=== PATIENT | male | born 1940 | race Caucasian/White ===

== ENCOUNTER 2016-10-06 15:42 | Emergency (ER) | payer OTHER ==
[~2016-10-06] VITALS: Ht 175.3 cm; Wt 85.5 kg
[~2016-10-06 15:42] MED LIST: ALBU8.5H2 INHALATION; ASPI-973 PO; ATOR80TA77 PO; DOCU240C41 PO; FLUO20CA25 PO; FURO40TA4 PO; GABA-502 PO; LISI10TA PO; LORA0.5T PO; MIRT30TA6 PO; MULT-321 PO; OMEP20CA11 PO; OXYC-407 PO; PRE20 PO; TAMS0.4C98 PO; THIA100T64 PO; TRAM50TA2 PO
[2016-10-06 16:02] VITALS: BP 141/113; PULSE 82; RESP 20; O2SAT 95
[2016-10-06] MEDS ORDERED: HYDROmorphone 1 mg/mL Inj IVPUSH ONE (16:25)
[2016-10-06 16:26] LABS: BASOPHILS % (AUTO) 0.2 % (0-3); EOSINOPHILS % (AUTO) 4.7 % (0-5); MONOCYTES % (AUTO) 12.4 % (4-12); Mean Corpuscular Hemoglobin 32.7 pg (27.0-35.0); Mean Corpuscular Volume 100.6 fL (81-100); NEUTROPHILS % (AUTO) 56.5 % (40-74); Platelet Count 212 bil/L (150-400)
[2016-10-06 16:43] LABS: INR 0.98 ratio
--- NOTE | 2016-10-06 17:01 | ED.REPORT ---
HPI-General Illness Date of Service Oct 06, 2016 ED Provider: Ronaldo Raza MD A 76 year old male with a medical history including hypertension, CAD, diabetes , COPD, and alcohol abuse presents to the ED accompanied by his daughter with bilateral lower leg sores onset two days ago. Associated symptoms include bilateral lower extremity swelling, pain, and redness. The patient denies fever , chills, or other symptoms. His legs are swollen bilaterally at baseline. Nursing Notes Stated Complaint: OPEN SRES ON LEGS Chief Complaint: General Complaint Nursing Notes Reviewed: Yes Allergies: Coded Allergies: hydrocodone bitartrate (Verified Allergy, Intermediate, Rash,Itching,, 10/06) Scheduled Albuterol HFA (Proair HFA) 8.5 Gm Hfa.aer.ad 2 PUFFS INHALATION Q4H Aspirin (Aspirin) 81 Mg Tablet 81 MG PO DAILY Atorvastatin Calcium (Atorvastatin Calcium) 80 Mg Tablet 80 MG PO HS Cephalexin (Keflex) 500 Mg Capsule 500 MG PO QID Docusate Calcium (Stool Softener) 240 Mg Capsule 240 MG PO DAILY Fluoxetine (Fluoxetine) 20 Mg Capsule 20 MG PO DAILY Furosemide (Furosemide) 40 Mg Tablet 40 MG PO DAILY Gabapentin (Gabapentin) 300 Mg Capsule 300 MG PO TID Lisinopril (Lisinopril) 10 Mg Tablet 10 MG PO DAILY Mirtazapine (Mirtazapine) 30 Mg Tablet 30 MG PO HS Multivit with Calcium,Iron,Min (Maximum Daily Multivitamin) 1 Each Tablet 1 EACH PO DAILY Mupirocin (Mupirocin Ointment) 22 Gm Oint...g. 1 APPLIC TOP TID Omeprazole (Omeprazole) 20 Mg Capsule.dr 20 MG PO BID Prednisone (PredniSONE) 20 Mg Tablet 40 MG PO DAILY Tamsulosin (Flomax) 0.4 Mg Capsule 0.4 MG PO HS Thiamine Mononitrate (Vitamin B-1) 100 Mg Tablet 100 MG PO DAILY Scheduled PRN Lorazepam (Lorazepam) 0.5 Mg Tablet 0.5 MG PO TID PRN PRN For Anxiety Oxycodone HCl/Acetaminophen 5-325 (Endocet 5-325) 1 Each Tablet 1 TABLET PO Q4H PRN PRN For Pain Tramadol (Tramadol) 50 Mg Tablet 50 MG PO BID PRN PRN For Pain General Time Seen by MD: 16:19 Chief Complaint Other (Bilateral Lower Extremity Sores) Hx Obtained From: Patient Arrived By: Walk-in Sudden in Onset?: Yes Onset Occurred: 2 days ago Symptom Duration: Since onset Location: : Leg left: Leg right Quality: Painful Severity: Current: Moderate Severity: Maximum: Moderate Associated with: Reports: Pain (Lower extremities ), Denies: Fever Pertinent Negative: Relieved by nothing Context Related History: Reports Coronary artery disease, Reports Diabetes mellitus Recent Healthcare: No recent doctor visit Past Medical History Past Medical History s, 1. longstanding history of alcoholism, who has had approximately seven admissions since January 2012, for complications of alcoholism, including acute alcohol withdrawal, ground level falls, traumatic injury to his shoulder requiring surgery, broken ribs 2. Polysubstance abuse. 3. Hypertension. 4. Hyperlipidemia 5. Depression and anxiety. 6. COPD not on home oxygen, current every day smoker 7. Coronary artery disease s/p 2 stents 8. History of stroke without residual deficits 9. Obstructive sleep apnea (the patient took himself off CPAP many years ago). 10. Borderline diabetes. 11. History of MRSA pneumonia. 12. Recently patient with ongoing right hip pain, suspect secondary to osteoarthritis, patient scheduled for followup at [facility] for steroid injection, he has been prescribed tramadol and oxycodone by [facility] Reports: COPD, Coronary artery disease, Diabetes mellitus, Hypertension, Stroke Past Surgical History He has had multiple coronary stents, pinning of his right shoulder, and facial cancer removed years ago. Smoking History Former Smoker Social History Alcohol Use: >5 per day Ambulatory Status Walker Review of Systems + Bilateral lower leg sores and redness Full Review of Systems Constitutional: Denies: Chills, Fever Respiratory: Denies: Non-productive cough, Shortness of breath GI: Denies: Diarrhea, Vomiting Musculoskeletal: Reports: Extremity pain (Bilateral lower extremities), Extremity swelling (Bilateral lower extremities) Complete sys rev & neg: except as marked. Physical Exam Vital Signs Vital Signs Date Time Temp Pulse Resp B/P Pulse Ox O2 Delivery O2 Flow Rate FiO2 10/06/16 17:57 60 100/54 95 Room Air 10/06/16 17:53 60 100/54 95 Room Air 10/06/16 16:02 82 20 141/113 95 Room Air Initial VS: Reviewed Neurologic: Alert, Oriented Psychiatric: Mood/affect normal, Behavior normal General/Constitutional: Awake, Alert Head / Eyes: Atraumatic, Normocephalic ENT: Airway patent, Mucous membranes moist Respiratory / Chest: Breath sounds NL, Breath sounds = bilat, No respiratory distress Cardiovascular: Heart rate NL, Regular rhythm, Heart sounds NL, No gallop, No murmurs, No rubs Lower Ext Edema: Positive: Bilateral 2+ (Up to knees) Skin: Warm, Dry Erythema with mild induration to bilateral lower extremities from ankles up 1/3 to knee. Serous drainage and superficial skin breakdown present. Interpretation & Diagnostics Lab Results Interpretation Result Diagram: 10/06/16 1620 10/06/16 1620 Test 10/06/16 16:20 White Blood Count 9.2th/mm3 (3.8-10.1) Red Blood Count 3.36mil/mm3 (4.40-5.80) Hemoglobin 11.0g/dL (13.8-17.2) Hematocrit 33.8% (41.0-50.0) Mean Corpuscular Volume 100.6fL (81-100) Mean Corpuscular Hemoglobin 32.7pg (27.0-35.0) Mean Corpuscular Hemoglobin Concent 32.5% (32.0-37.0) Red Cell Distribution Width 13.3% (12.3-15.4) Platelet Count 212bil/L (150-400) Neutrophils (%) (Auto) 56.5% (40-74) Lymphocytes (%) (Auto) 26.0% (14-46) Monocytes (%) (Auto) 12.4% (4-12) Eosinophils (%) (Auto) 4.7% (0-5) Basophils (%) (Auto) 0.2% (0-3) Prothrombin Time 10.5sec (8.1-12.5) Prothromb Time International Ratio 0.98ratio Sodium Level 133mEq/L (134-144) Potassium Level 4.1mEq/L (3.5-5.2) Chloride Level 91mEq/L (97-108) Carbon Dioxide Level 26mmol/L (18-29) Blood Urea Nitrogen 22mg/dL (8-27) Creatinine 1.21mg/dL (0.76-1.27) Estimat Glomerular Filtration Rate 62mL/min (>59) Glucose Level 106mg/dL (60-99) Lactic Acid Level 1.2mmol/L (0.4-2.0) Calcium Level 9.5mg/dL (8.5-10.1) Magnesium Level 2.0mg/dL (1.6-2.6) Total Bilirubin 0.5mg/dL (0.0-1.2) Aspartate Amino Transf (AST/SGOT) 19U/L (0-50) Alanine Aminotransferase (ALT/SGPT) 16U/L (0-44) Alkaline Phosphatase 154U/L (25-160) Pro-B-Type Natriuretic Peptide 627.4pg/mL (0-486) Total Protein 7.2g/dL (6.4-8.4) Albumin 4.0g/dL (3.4-5.0) Lipase 20U/L (13-60) Re-Eval/Medical Decision Med Decision/Clinical Course A 76 year old male with a medical history including hypertension, CAD, diabetes , COPD, and alcohol abuse presents to the ED accompanied by his daughter with bilateral lower leg sores onset two days ago. Associated symptoms include bilateral lower extremity swelling, pain, and redness. The patient denies fever , chills, or other symptoms. His legs are swollen bilaterally at baseline. Here in the emergency department the patient appears quite uncomfortable but is otherwise afebrile and hemodynamically stable with examination as above. Upper studies notable as below: CBC no leukocytosis Stable hematocrit of 33.8 Sodium 133 Lactate 1.2 Stable BnP of 627 No significant electrolyte abnormalities. Here in the emergency room his pain was treated with IV hydromorphone. Examination notable for symmetric bilateral lower extremity edema and overlying stasis dermatitis with some superficial skin breakdown. I suspect there may be a small component of cellulitis here as well. I prescribed a course of Keflex and advised him to elevate his legs and use compression stockings. No evidence of DVT. Patient nontoxic in appearance. Of note he does have somewhat labile blood pressure initially quite hypertensive and then borderline hypotensive with a systolic blood pressure in the low 100s. I do not believe that this represents an evolving septic picture and in discussion with the patient as family he states that he has a long history of such labile blood pressures. I feel that he is appropriate for discharge and close follow-up with his primary care physician.Prior to discharge follow-up and return precautions were reviewed in detail with the patient who verbalized understanding and agreement with the plan. The patient was discharged in stable condition. Time of Eval: 17:53 Patient Status: Condition improved Re-Evaluation/Progress Note: Discussed with patient and family lab results, diagnosis, and plan for discharge. Follow-up and return to the ER instructions given. Patient agrees with plan for care and all questions were addressed. Counseled Regarding: Diagnosis, Lab results, Need for follow-up, When/why to return to ED Discharge & Departure Primary Impression: Stasis dermatitis of both legs Additional Impressions: Cellulitis Site of cellulitis: extremity Site of cellulitis of extremity: lower extremity Laterality: unspecified laterality Qualified Code: L03.119 - Cellulitis of unspecified part of limb Pain in both lower legs Bilateral lower extremity edema Disposition: Home Discharge Condition All VS Reviewed: Yes Condition: Improved Patient Instructions: Cellulitis (ED), Stasis Dermatitis (ED) Additional Instructions: Thank you for seeking care at the emergency room. It is difficult for us to make definitive diagnoses in the ED but we believe that you are experiencing stasis dermatitis and cellulitis. Our primary goal today in the ED was to evaluate you for any life-threatening conditions. Your evaluation was reassuring. You will be discharged with a prescription for Cephalexin. Elevate your legs as much as possible. Also use compression stockings. You may apply Mupirocin cream as directed for pain. You should follow-up with your primary doctor in the next week. You should return to the ED immediately if you develop fevers, vomiting, cough, shortness of breath, chest pain, lightheadedness, weakness or any other concerning signs or symptoms. Thank you for letting us partake in your care today. Referrals: Niranjan Nettles MD (PCP) Yoly Attestation Portions of this note were transcribed by Deepti Guerrero. I, Dr. Raza, personally performed the history, physical exam, and medical decision-making; I reviewed and confirmed the accuracy of the information in the transcribed note. Signed by: Yoly Wilkinson, 10/06/2016, 20:55 copies to: Niranjan Nettles MD, Beck O MD Oct 06, 2016 17:01 DEEPTI GUERRERO Oct 06, 2016 17:37
[2016-10-06] MEDS ORDERED: CEPH-512 PO (17:39)
[2016-10-06] MEDS ORDERED: MUPI22OI2 TOP (17:39)
[2016-10-06 17:53] VITALS: BP 100/54; PULSE 60; O2SAT 95
[2016-10-06 17:57] VITALS: BP 100/54; PULSE 60; O2SAT 95
== END 2016-10-06 17:58 | disposition home or self-care (01) ==
LOC: SED 15:42
DX: I87.2 Venous insufficiency (chronic) (peripheral) (principal); L03.115 Cellulitis of right lower limb; L03.116 Cellulitis of left lower limb; M79.661 Pain in right lower leg; M79.662 Pain in left lower leg; R60.0 Localized edema; I11.9 Hypertensive heart disease without heart failure; I25.10 Atherosclerotic heart disease of native coronary artery without angina pectoris; E11.9 Type 2 diabetes mellitus without complications; E78.5 Hyperlipidemia, unspecified; J44.9 Chronic obstructive pulmonary disease, unspecified; Z79.82 Long term (current) use of aspirin; Z86.73 Personal history of transient ischemic attack (TIA), and cerebral infarction without residual deficits; Z95.5 Presence of coronary angioplasty implant and graft; Z87.891 Personal history of nicotine dependence; Z88.5 Allergy status to narcotic agent
CPT/HCPCS: 36415; 80053; 83605; 83690; 83735; 83880; 85025; 85610; 96374; 99284; J1170

== ENCOUNTER 2016-11-21 20:06 | Inpatient (IN) | payer MEDICARE, OTHER ==
[~2016-11-21] VITALS: Ht 175.3 cm; Wt 84.0 kg
--- NOTE | 2016-11-21 03:10 | NUR ---
Admission Pt arrived via own bed from ED. Pt soiled in own urine and feces, total bed change done. Pt alert but not able to answer questions regarding medical history or living situation. Pt washed, blue brief on as pt has been incontinent of both bowel and bladder. Pt reported having nausea, given PRN, water, and basin. No emesis. PRN analgesic for pain given. Pt slept 04-06am.
[~2016-11-21 20:06] MED LIST changes: +CEPH-512 PO; +MUPI22OI2 TOP
[2016-11-21 20:14] VITALS: BP 155/57; PULSE 75; O2SAT 95
[2016-11-21 20:41] LABS: BASOPHILS % (AUTO) 0.2 % (0-3); EOSINOPHILS % (AUTO) 0.1 % (0-5); MONOCYTES % (AUTO) 4.7 % (4-12); Mean Corpuscular Hemoglobin 33.9 pg (27.0-35.0); Mean Corpuscular Volume 99.5 fL (81-100); NEUTROPHILS % (AUTO) 79.6 % (40-74); Platelet Count 272 bil/L (150-400)
[2016-11-21 20:59] LABS: TROPONIN T < 0.010 ug/L (0.0-0.011)
--- NOTE | 2016-11-21 21:00 | DRSVH ---
PROCEDURE: X-RAY CHEST ONE VIEW, PORTABLE ([id number]) INDICATIONS: cough TECHNIQUE: One view of the chest was acquired. COMPARISON: [facility], CR, XR CHEST 1VW (PORTABLE), 07/01/2015, 16:58. FINDINGS: Surgical changes and devices: Orthopedic screws proximal right humerus stable compared to prior exam ination. Lungs and pleura: No pleural effusions or pneumothorax. Lungs are clear. Mediastinum: Mediastinal contours appear normal. Heart size is normal. Bones and chest wall: Chronic third, fourth, fifth and sixth rib fractures stable compared to prior examination. No suspicious bony lesions. Overlying soft tissues appear unremarkable. IMPRESSION: No acute cardiopulmonary disease process. Dictated by: Nakita Salas MD, PhD on 11/21/2016 at 20:57 Approved by: Nakita Salas MD, PhD on 11/21/2016 at 20:58
[2016-11-21 21:07] LABS: Lipase 20 U/L (13-60)
--- NOTE | 2016-11-21 21:13 | ED.REPORT ---
HPI-Abd Pain M 40 and Over Date of Service November 21, 2016 ED Provider: Pillo Christianson MD 76 y/o male with a hx of alcohol abuse, hypertension, CAD, diabetes, and COPD presents to the ED via EMS complaining of nausea. He says he has been sick for "a long time". He can not give a clear answer as to the onset or duration of his symptoms. Associated sx include abdominal pain, vomiting, diarrhea, chills, SOB and yellow sputum with cough. He denies fever. As per the pt's family, the pt "drinks beer all day long but it doesn't affect him." They were also unable to give a clear answer as to the onset of the pt's sx. Nursing Notes Stated Complaint: NAUSEA Chief Complaint: General Complaint Nursing Notes Reviewed: Yes Allergies: Coded Allergies: hydrocodone bitartrate (Verified Allergy, Intermediate, Rash,Itching,, 10/06) Scheduled Albuterol HFA (Proair HFA) 8.5 Gm Hfa.aer.ad 2 PUFFS INHALATION Q4H Atorvastatin Calcium (Atorvastatin Calcium) 80 Mg Tablet 80 MG PO HS Ferrous Sulfate (Ferrous Sulfate) 324 Mg Tablet.dr 324 MG PO TIDWM Finasteride (Finasteride) 5 Mg Tablet 5 MG PO DAILY Fluoxetine (Fluoxetine) 40 Mg Capsule 40 MG PO DAILY Furosemide (Furosemide) 20 Mg Tab 60 MG PO DAILY Gabapentin (Gabapentin) 300 Mg Capsule 600 MG PO TID Lisinopril (Lisinopril) 10 Mg Tablet 10 MG PO DAILY Mirtazapine (Mirtazapine) 30 Mg Tablet 30 MG PO HS Morphine Sulfate (Morphine Sulfate) 30 Mg Tablet 30 MG PO TID Omeprazole (Omeprazole) 20 Mg Capsule.dr 20 MG PO BIDWM Polyethylene Glycol 3350 (Polyethylene Glycol 3350) 17 Gm Powd.pack 17 GM PO DAILY Tamsulosin (Flomax) 0.4 Mg Capsule 0.4 MG PO HS Scheduled PRN Docusate Sodium (Docusate Sodium) 250 Mg Capsule 250 MG PO BID PRN PRN For Constipation Ondansetron (Ondansetron) 8 Mg Tablet 8 MG PO Q8HR PRN PRN For Nausea Oxycodone (Roxicodone) 5 Mg Tablet 10 MG PO Q6H PRN PRN For Pain Psyllium Husk (Psyllium Husk) 1,000 Gm Powder 1,000 GM PO DAILY PRN PRN For Constipation General Time Seen by MD: 21:08 Chief Complaint Nausea Hx Obtained From: Patient Arrived By: Ambulance Sudden in Onset?: No Onset Occurred: Onset unknown Symptom Duration: Duration unknown Location: : Diffuse Quality: Painful Radiation: : Does not radiate Severity: Current: Moderate Severity: Maximum: Moderate Recent Healthcare: Recent doctor visit Similar Sx Previous: No Past Medical History Past Medical History 1. longstanding history of alcoholism, who has had approximately seven admissions since January 2012, for complications of alcoholism, including acute alcohol withdrawal, ground level falls, traumatic injury to his shoulder requiring surgery, broken ribs 2. Polysubstance abuse. 3. Hypertension. 4. Hyperlipidemia 5. Depression and anxiety. 6. COPD not on home oxygen, current every day smoker 7. Coronary artery disease s/p 2 stents 8. History of stroke without residual deficits 9. Obstructive sleep apnea (the patient took himself off CPAP many years ago). 10. Borderline diabetes. 11. History of MRSA pneumonia. 12. Recently patient with ongoing right hip pain, suspect secondary to osteoarthritis, patient scheduled for followup at [facility] for steroid injection, he has been prescribed tramadol and oxycodone by [facility] Reports: COPD, Coronary artery disease, Diabetes mellitus, Hypertension, Stroke Past Surgical History He has had multiple coronary stents, pinning of his right shoulder, and facial cancer removed years ago. Smoking History Former Smoker Social History Alcohol Use: >5 per day Other Social History: Good social support Ambulatory Status Walker Review of Systems Constitutional: Reports: Chills, Denies: Fever Respiratory: Reports: Prod cough, yellow, Shortness of breath GI: Reports: Abdominal pain, Diarrhea, Nausea, Vomiting Complete sys rev & neg: except as marked. Physical Exam Initial Vital Signs Vital Signs (First) Date Time Temp Pulse Resp B/P Pulse Ox O2 Delivery O2 Flow Rate FiO2 11/21/16 20:14 36.5 75 155/57 95 Room Air Initial VS: Reviewed, Vital signs normal Head / Eyes: Atraumatic, Normocephalic Neck: Supple, Full range of motion Extremities: Vascular intact, Neuro intact, No swelling, No tenderness Skin: Warm, Dry, No cyanosis Neurologic: Alert, Oriented, Nonfocal General/Constitutional: Awake, Alert, Cooperative Distress / Hydration: Positive: Distress moderate Pt smells of EtOH. His alcohol level is 147. Respiratory / Chest: Atraumatic, No wheezing Rhonchi and rales throughout all lung chanel, no focal changes. Thick yellow/green sputum with cough. Cardiovascular: Heart rate NL, Regular rhythm, Heart sounds NL, No gallop, No murmurs, No rubs Abdomen: Atraumatic Abdomen diffusely tender, especially in the RUQ. Back: Atraumatic, Full range of motion, Non-tender Interpretation & Diagnostics Lab Results Interpretation Result Diagram: 11/23/16 0718 11/23/16 0718 Test 11/21/16 20:00 Magnesium Level 2.0mg/dL (1.6-2.6) Troponin T < 0.010ug/L (0.0-0.011) Pro-B-Type Natriuretic Peptide 1326pg/mL (0-486) Lipase 20U/L (13-60) Alcohols 147mg/dL (0-10) Lab Results Interpretation: Alcohol and forty-seven, normal CBC, mildly low potassium at 3.4, mildly elevated BNP ECG Interpretation ECG Interpretation: Normal sinus rhtyhm. Rate 75. Significant baseline interference. Time: 21:03 Interpreted by: ED physician X-Ray Chest Interpretation Chest Xray Interpretation: IMPRESSION: No acute cardiopulmonary disease process. Dictated by: Nakita Salas MD, PhD on 11/21/2016 at 20:57 Approved by: Nakita Salas MD, PhD on 11/21/2016 at 20:58 View: Portable, 1 view Interpretation / Wet Read by: Interpret - Radiologist CT Abd / Pelvis Interpretation Impression: No signs of appendicitis, diverticulitis, or mechanical small bowel obstruction. Signed by: Sudha Kennedy M.D. 11/21/16 2221. Study type: Abdominal CT IV contrast Interpretation / Wet Read by: Interpret - Radiologist Re-Eval/Medical Decision Med Decision/Clinical Course 76-year-old male who presents with vague abdominal pain and restless distress. Initial labs are mostly unremarkable with a normal white count, but a mild decreased potassium at 3.4, mildly elevated BNP, alcohol 147, and lactic acid 4.0. His chest x-ray appeared normal but there was some ground glass opacities possibly consistent with early pneumonia in the right base on the CT scan. The abdominal portion of the CT scan was normal. He was started on pneumonia antibiotics after cultures. He will be admitted to the hospitalist service for further evaluation and treatment. Source of Hx: Old records Time of Eval: 00:00 Re-Evaluation/Progress Note: Rechecked pt. Discussed lab, imaging results and diagnosis. Informed the pt of the plan to discharge. Pt understands and agrees with plan. F/U instructions and RTER warning given. All questions addressed. Consultation : Referral / Consult Name: Skylar Soriano Pablo DENSON Consulted With: Hospitalist Call Returned at: 00:10 Cherry Dipper: Will see patient, Agrees with eval, Agrees with plan, Accepts admit Counseled Regarding: Diagnosis, Lab results, Need for admission Discharge & Departure Primary Impression: Right lower lobe pneumonia Additional Impression: Sepsis Disposition: ADMITTED TO HOSPITAL Vital Signs - All Vital Signs Date Time Temp Pulse Resp B/P Pulse Ox O2 Delivery O2 Flow Rate FiO2 11/21/16 21:17 36.5 77 150/52 95 Room Air 11/21/16 20:14 36.5 75 155/57 95 Room Air )( All Prior VS Reviewed: Yes Referrals: Niranjan Nettles MD (PCP) Scribe Attestation Portions of this note were transcribed by Esther Whitfield. I, , personally performed the history, physical exam and medical decision-making;I reviewed and confirmed the accuracy of the information in the transcribed note. Signed by Yoly Gentile. 11/21/16 0020 copies to: Niranjan Nettles MD, Howard L MD November 21, 2016 21:12 Esther Whitfield November 21, 2016 21:20 Total Protein 8.0g/dL (6.4-8.4) Albumin 4.2g/dL (3.4-5.0) Lipase 20U/L (13-60) Alcohols 147mg/dL (0-10) ECG Interpretation ECG Interpretation: Normal sinus rhtyhm. Rate 75. Significant baseline interference. Time: 21:03 Interpreted by: ED physician X-Ray Chest Interpretation Chest Xray Interpretation: IMPRESSION: No acute cardiopulmonary disease process. Dictated by: Nakita Salas MD, PhD on 11/21/2016 at 20:57 Approved by: Nakita Salas MD, PhD on 11/21/2016 at 20:58 View: Portable, 1 view Interpretation / Wet Read by: Interpret - Radiologist CT Abd / Pelvis Interpretation Impression: No signs of appendicitis, diverticulitis, or mechanical small bowel obstruction. Signed by: Sudha Kennedy M.D. 11/21/16 2221. Study type: Abdominal CT IV contrast Interpretation / Wet Read by: Interpret - Radiologist Re-Eval/Medical Decision Source of Hx: Old records Time of Eval: 00:00 Re-Evaluation/Progress Note: Rechecked pt. Discussed lab, imaging results and diagnosis. Informed the pt of the plan to discharge. Pt understands and agrees with plan. F/U instructions and RTER warning given. All questions addressed. Consultation : Referral / Consult Name: ChristieSkylarsherron Shah DO Consulted With: Hospitalist Call Returned at: 00:10 Cherry Dipper: Will see patient, Agrees with eval, Agrees with plan, Accepts admit Counseled Regarding: Diagnosis, Lab results, Need for admission Discharge & Departure Primary Impression: Right lower lobe pneumonia Additional Impression: Sepsis Disposition: ADMITTED TO HOSPITAL Vital Signs - All Vital Signs Date Time Temp Pulse Resp B/P Pulse Ox O2 Delivery O2 Flow Rate FiO2 11/21/16 21: 36.5 77 150/52 95 Room Air 11/21/16 20:14 36.5 75 155/57 95 Room Air )( All Prior VS Reviewed: Yes Referrals: Niranjan Nettles MD (PCP) Scribe Attestation Portions of this note were transcribed by Esther Whitfield. I, , personally performed the history, physical exam and medical decision-making;I reviewed and confirmed the accuracy of the information in the transcribed note. Signed by Yoly eGntile. 11/21/16 0020 copies to: Niranjan Nettles MD, Howard L MD November 21, 2016 21:12 Esther Whitfield November 21, 2016 21:20 Disposition: ADMITTED TO HOSPITAL Vital Signs - All Vital Signs Date Time Temp Pulse Resp B/P Pulse Ox O2 Delivery O2 Flow Rate FiO2 11/21/16: 36.5 77 150/52 95 Room Air 11/21/16 20:14 36.5 75 155/57 95 Room Air )( All Prior VS Reviewed: Yes Referrals: Niranjan Nettles MD (PCP) Scribe Attestation Portions of this note were transcribed by Esther Whitfield. I, , personally performed the history, physical exam and medical decision-making;I reviewed and confirmed the accuracy of the information in the transcribed note. Signed by Yoly Gentile. 11/21/16 0020 copies to: Niranjan Nettles MD, Howard L MD November 21, 2016 21:12 Esther Whitfield November 21, 2016 21:20
[2016-11-21 21:17] VITALS: BP 150/52; PULSE 77; O2SAT 95
[2016-11-21] MEDS ORDERED: HYDROmorphone 1 mg/mL Inj IVPUSH ONE (21:45)
[2016-11-21] MEDS ORDERED: cefTRIAXone Inj 2,000 MG in Dextrose 5% Minibag Plus 50 ML IV ONE (22:30)
[2016-11-21] MEDS ORDERED: Azithromycin Inj 500 MG in Dextrose 5% w/Vial Mate 250 ML IV ONE (22:30)
[2016-11-21] MEDS ORDERED: 0.9% Sodium Chloride 1,000 ML IV SCH (22:45)
[2016-11-22] VITALS (10 sets, daily range): BP systolic 158–186; BP diastolic 69–93; PULSE 69–96; RESP 18–24; O2SAT 93–98
[2016-11-22] MEDS ORDERED: Ondansetron 2 mg/mL 2 mL Inj IVPUSH PRN ×2 (02:30→02:50)
[2016-11-22] MEDS ORDERED: Alum-Mag Hydrox-Simeth 30 mL Suspension PO PRN ×2 (02:30→02:50)
[2016-11-22] MEDS ORDERED: Polyethylene Glycol (PEG) 17 Gm Powder PO PRN (02:50)
[2016-11-22] MEDS: 0.9% Sodium Chloride 1,000 ML IV SCH ×2 (03:49→16:18)
[2016-11-22] MEDS ORDERED: HYDROmorphone 0.5 mg/0.5 mL iSecure Syringe IVPUSH PRN (03:55)
--- NOTE | 2016-11-22 04:23 | PCM.HPMED ---
Subjective Date of Service November 22, 2016 Primary Provider: Admitting Physician: Skylar Soriano DO Primary Care Physician: Niranjan Nettles MD Attending Physician: Skylar Soriano DO Admit Status: From the Emergency Department, [facility] Telemetry Chief Complaint: Nausea History of Present Illness: Patient is a 76 y/o male with a hx of alcohol abuse, hypertension, CAD, diabetes , and COPD presents to the ED via EMS complaining of nausea and diarrhea. Patient is a poor historian and does not know why he was brought to the ED from his [facility] care facility. He says he has been sick for "a long time". He can not give a clear answer as to the onset or duration of his symptoms. Associated sx include abdominal pain, vomiting, diarrhea, chills, SOB. The abdominal pain is located on his left lower quadrant, patient characterizes it as deep within intensity being moderate to severe. Patient also reports of feeling constipated and wanting to have have BM, but continues to have ongoing diarrhea, which patient cannot specify duration of. He denies fever or cough. Patient's states he had similar symptoms when he drank whiskey, but cannot remember how long ago this was. Ptates he drank a fifth of whiskey last Tuesday and attributes his symptoms to this. Patient states he continues to drink 8-9 beers a day, and is not ready to quit. In the ED vitals with temperature 36.5, pulse 75, blood pressure 155/57, oxygen at 95% on room air. Labs significant for potassium 3.4, lactic acid 4.0, alkaline phosphatase 184, BNP 1326. EtOH of 147. Troponin 1 negative, lipase normal at 20. CXR showed no acute cardiopulmonary process. CT abdomen showed "No signs of appendicitis, diverticulitis, or mechanical small bowel obstruction." Patient admitted for further workup and management. Patient was diagnosed with community -acquired pneumonia based on physical exam findings, started on ceftriaxone and azithromycin in ED. Review of Systems: Constitutional: Chills, Denies: Fever Respiratory: Yellow productive cough, Shortness of breath GI: LLQ abdominal pain, ongoing diarrhea, Nausea, Denies vomiting Complete sys rev & neg: except as marked. Allergies Coded Allergies: hydrocodone bitartrate (Verified Allergy, Intermediate, Rash,Itching,, 10/06) Home Medications Albuterol HFA (Proair HFA) 8.5 Gm Hfa.aer.ad 2 PUFFS INHALATION Q4H Aspirin (Aspirin) 81 Mg Tablet 81 MG PO DAILY Atorvastatin Calcium (Atorvastatin Calcium) 80 Mg Tablet 80 MG PO HS Cephalexin (Keflex) 500 Mg Capsule 500 MG PO QID Docusate Calcium (Stool Softener) 240 Mg Capsule 240 MG PO DAILY Fluoxetine (Fluoxetine) 20 Mg Capsule 20 MG PO DAILY Furosemide (Furosemide) 40 Mg Tablet 40 MG PO DAILY Gabapentin (Gabapentin) 300 Mg Capsule 300 MG PO TID Lisinopril (Lisinopril) 10 Mg Tablet 10 MG PO DAILY Mirtazapine (Mirtazapine) 30 Mg Tablet 30 MG PO HS Multivit with Calcium,Iron,Min (Maximum Daily Multivitamin) 1 Each Tablet 1 EACH PO DAILY Mupirocin (Mupirocin Ointment) 22 Gm Oint...g. 1 APPLIC TOP TID Omeprazole (Omeprazole) 20 Mg Capsule.dr 20 MG PO BID Prednisone (PredniSONE) 20 Mg Tablet 40 MG PO DAILY Tamsulosin (Flomax) 0.4 Mg Capsule 0.4 MG PO HS Thiamine Mononitrate (Vitamin B-1) 100 Mg Tablet 100 MG PO DAILY Scheduled PRN Lorazepam (Lorazepam) 0.5 Mg Tablet 0.5 MG PO TID PRN PRN For Anxiety Oxycodone HCl/Acetaminophen 5-325 (Endocet 5-325) 1 Each Tablet 1 TABLET PO Q4H PRN PRN For Pain Tramadol (Tramadol) 50 Mg Tablet 50 MG PO BID PRN PRN For Pain PMH 1. longstanding history of alcoholism, who has had approximately seven admissions since January 2012, for complications of alcoholism, including acute alcohol withdrawal, ground level falls, traumatic injury to his shoulder requiring surgery, broken ribs 2. Polysubstance abuse. 3. Hypertension. 4. Hyperlipidemia 5. Depression and anxiety. 6. COPD not on home oxygen, current every day smoker 7. Coronary artery disease s/p 2 stents 8. History of stroke without residual deficits 9. Obstructive sleep apnea (the patient took himself off CPAP many years ago). 10. Borderline diabetes. 11. History of MRSA pneumonia. 12. Recently patient with ongoing right hip pain, suspect secondary to osteoarthritis, patient scheduled for followup at [place] for steroid injection, he has been prescribed [facility]ad[facility] by [facility] Surgical History He has had multiple coronary stents, pinning of his right shoulder, and facial cancer removed years ago. Family History Father due to heart conditions. Social History Hx Alcohol Use: Yes (drinks 8-9 beers a day) Hx Substance Use: Yes (marijuana daily) Hx Tobacco Use: Yes Smoking Status: Former Smoker Living Arrangement: Other (long-term care facility) Exam Vital Signs Vital Sign - Last Date Time Temp Pulse Resp B/P Pulse Ox O2 Delivery O2 Flow Rate FiO2 11/21/16 21:17 36.5 77 150/52 95 Room Air Intake and Output 11/21/16 11/21/16 11/22/16 Cumulative From/Thru 15:00 23:00 07:00 11/21/16 20:14 - 11/21/16 22:53 Intake Total 1000 ml 1000 ml Balance 1000 ml 1000 ml Intake IV Total 1000 ml 1000 ml Exam GEN: alert, awake, in mild distress, appears uncomfortable, smells of alcohol HEENT: NC/AT, pinpoint pupils, EOMI, sclera anicteric, moist mucous membranes Neck: Supple, Non-tender, Full range of motion CV: Regular rate and rhythm, radial and dorsal pulses intact and normal Resp: diffuse coarse breath sounds throughout, no respiratory distress Abd: obese, soft, tender to deep palpation at RLQ Ext: 2+ pitting edema to below knees bilaterally Skin: warm, dry and intact, no cyanosis, mild venous stasis Neuro: alert and oriented, slow speech Psych: normal mood and affect Lab and Diagnostics Result Diagram: 11/21/16199911/21/161999 X-Rays, CTs and MRIs Chest Xray Interpretation: IMPRESSION: No acute cardiopulmonary disease process. Dictated by: Nakita Salas MD, PhD on 11/21/2016 at 20:57 Approved by: Nakita Salas MD, PhD on 11/21/2016 at 20:58 View: Portable, 1 view Interpretation / Wet Read by: Interpret - Radiologist CT abd Impression: No signs of appendicitis, diverticulitis, or mechanical small bowel obstruction. Signed by: Sudha Kennedy M.D. 11/21/16 2221. Study type: Abdominal CT IV contrast Interpretation / Wet Read by: Interpret - Radiologist 12-lead ECG ECG Interpretation: Normal sinus rhtyhm. Rate 75. Significant baseline interference. Time: 21:03 Interpreted by: ED physician Assessment & Plan 76 y/o male with a hx of alcohol abuse, hypertension, CAD, diabetes, and COPD presents to the ED via EMS complaining of nausea. Poor historian. He says he has been sick for "a long time". He can not give a clear answer as to the onset or duration of his symptoms. Associated sx include abdominal pain, vomiting, diarrhea, chills, SOB. Lactic acidosis, present on admission. Acute. - Ddx consist of ethanol intoxication, intestinal ischemia,other sources of infection - aggressive IVF - trend lactic acid Anion gap acidosis, present on admission. Acute. - Anion gap of 21.5 corrected for albumin, most likely due to lactic acidosis above secondary to ethanol intoxication RLQ abdominal pain, present on admission. Acute. - CT abdomen showed "No signs of appendicitis, diverticulitis, or mechanical small bowel obstruction." read by [facility] radiology. - Ddx consist of gastroenteritis, colitis, kidney stone, intestinal ischemia, IBD, IBS, abdominal abscess. - CT to be reviewed by radiologist - immediate general surgery to be consulted if any suspicion of ischemic bowel or appendicitis seen Possible left lower lobe pneumonia, present on admission. - XR showed no acute cardiopulmonary process. Abx with ceftriaxone and azithromycin started in ED based on clinical symptoms and physical exam - will await morning labs to decide to continue or not Elevated alcohol levels, present on admission. - Long-standing history of alcoholism, with multiple admissions since January 2012 - placed on CIWA protocol - patient states he does not want to quit his beer Ongoing diarrhea, present on admission. - patient with recent abx use - Stool PCR, WBC pending - Vancomycin PO [id number] until resulted - contact precautions Chronic conditions: COPD not on home oxygen - Continue home medication albuterol HFA CAD status post 2 stents - on telemetry Hypertension - continue home dose lisinopril and furosemide Hyperlipidemia - continue home dose atorvastatin TALIB noncompliant with CPAP Depression and anxiety - continue home dose fluoxetine and mirtazapine, lorazepam when necessary GERD - continue home dose omeprazole BPH - continue home dose tamsulosin Hx of stroke - continue home dose aspirin Chronic right hip pain secondary to OA - oxycodone/acetaminophen and tramadol held, currently on Dilaudid Medications - Dayteam to clarify medications with pharmacy, since patient does not know what he is taking and why. Acetaminophen-fever/headache/mild/moderate pain Antiemetics, as needed Bowel regimen, as needed. Patient status: Patient was admitted under inpatient status with expected length of stay greater than two midnights due to severity of presenting symptoms , risk of adverse event, and complexity of treatment plan. Pain Evaluation: Adequate Pain Control GI Prophylaxis: Not indicated VTE Prophylaxis: Sub-Q Heparin (Unfractionated) Resuscitation Status: CPR: Attempt Resuscitation (Shock once) Attending Statement The patient was seen and examined together with house staff on 12/23/2016 and I agree with the history, exam and plan as outlined in the note above. Mable Arango DO November 22, 2016 02:27 Skylar Soriano DO November 22, 2016 05:34 doctor's office to get a complete up-to-date medication list. For today, I have continued with his Flomax, mirtazapine, omeprazole, lisinopril, aspirin. We also continue with his gabapentin. 9. CODE STATUS: FULL CODE. Code sheet filled out. Pain Evaluation: Adequate Pain Control GI Prophylaxis: Not indicated VTE Prophylaxis: Sub-Q Heparin (Unfractionated) Resuscitation Status: CPR: Attempt Resuscitation (Shock once) Mable Arango DO November 22, 2016 02:27
[2016-11-22] MEDS: HYDROmorphone 1 mg/mL Inj IVPUSH PRN ×3 (05:27→10:38)
[2016-11-22 06:04] LABS: Mean Corpuscular Hemoglobin 34.4 pg (27.0-35.0); Mean Corpuscular Volume 100.9 fL (81-100); Platelet Count 234 bil/L (150-400)
[2016-11-22 06:05] LABS: BASOPHILS % (AUTO) 0.2 % (0-3); EOSINOPHILS % (AUTO) 0 % (0-5); MONOCYTES % (AUTO) 5.7 % (4-12); NEUTROPHILS % (AUTO) 86.9 % (40-74)
--- NOTE | 2016-11-22 07:42 | DRSVH ---
PROCEDURE: CT ABDOMEN AND PELVIS WITH CONTRAST ([id number]) INDICATIONS: abd pain TECHNIQUE: After the administration of intravenous contrast, 5 mm thick sections acquired from the diaphragm to the symphysis. 5 mm coronal and sagittal reformats were acquired. For radiation dose reduction, the following was used: automated exposure control, adjustment of mA and/or kV according to patient siz e. COMPARISON: None. FINDINGS: Image quality: Excellent. ABDOMEN: Lung bases: Lung bases are clear of acute disease.. Heart size is normal. Solid organs: Liver and spleen are normal in size and enhancement. Gallbladder is within normal [place] its.. Biliary system is non dilated. Pancreas enhances normally. No adrenal nodules. Kidneys demo nstrate normal size and enhancement, without hydronephrosis. Symmetric perinephric stranding is pres ent suggesting old inflammation or obstruction. Peritoneum and bowel: Bowel loops demonstrate normal wall thickness and caliber. No free fluid or a ir. There is a normal appendix. There are scattered colonic diverticula without diverticulitis. Nodes and vessels: No retroperitoneal or mesenteric adenopathy by size criteria. Aorta and inferior vena cava are normal in size. Atherosclerotic calcifications are present. Miscellaneous: No ventral hernias. PELVIS: Genitourinary: Bladder wall thickness is normal. Miscellaneous: No inguinal hernias or adenopathy. Bones: No suspicious bony lesions. No vertebral body compression fractures. IMPRESSION: 1. Cause of abdominal pain is not identified. No evidence for acute disease. Dictated by: Niranjan Ochoa M.D. on 11/22/2016 at 7:34 this report corresponds to the findings of the preliminary NSR report. Approved by: Niranjan Ochoa M.D. on 11/22/2016 at 7:41
[2016-11-22] MEDS ORDERED: KCl 40 mEq/D5W 500 mL 40 MEQ in IV Premix 500 EACH IV ONE (07:45)
[2016-11-22 10:28] LABS: APPEARANCE,URINE HAZY (CLEAR,HAZY); COLOR,URINE STRAW (YELLOW); OCCULT BLOOD,URINE TRACE (NEGATIVE); UROBILINOGEN,URINE NORMAL (NORMAL)
[2016-11-22] MEDS: Heparin 5,000 Unit/mL Inj SUBQ SCH ×2 (10:28→16:20)
[2016-11-22] MEDS ORDERED: MORP30TA PO (12:04)
[2016-11-22] MEDS ORDERED: DOCU250C2 PO (12:04)
[2016-11-22] MEDS ORDERED: FUR20 PO (12:04)
[2016-11-22] MEDS ORDERED: FERR324T2 PO (12:04)
[2016-11-22] MEDS ORDERED: FLUO40CA PO (12:04)
[2016-11-22] MEDS ORDERED: FINA5TAB9 PO (12:04)
[2016-11-22] MEDS ORDERED: OXYC-474 PO (12:10)
[2016-11-22] MEDS ORDERED: PSYL1000 PO (12:10)
[2016-11-22] MEDS ORDERED: POLY17PO2 PO (12:10)
[2016-11-22] MEDS ORDERED: ONDA-54 PO (12:10)
[2016-11-22] MEDS: Vancomycin 125 mg Oral Capsule PO SCH ×2 (12:40→15:02)
[2016-11-22] MEDS: Thiamine Inj 100 MG in 0.9% Sodium Chloride 100 ML IV SCH (14:05)
--- NOTE | 2016-11-22 18:07 | PCM.PNMED ---
Subjective Date of Service November 22, 2016 Subjective Michi Atwood is a 76 year old man with past medical history significant for alcohol abuse, hypertension, CAD, diabetes, and COPD presents to the ED via EMS complaining of nausea. Currently under treatment for EtOH withdrawal and abdominal pain. Hospital day #2 Overnight: No acute events after admission. Today: The patient states he still has abdominal pain and feels that he has to have a bowel movement but cannot. He continues to have small liquid stools. He denies any fevers, chills, chest pain, but he does note anxiety and a tremor. The remainder of the review of systems is negative except as noted above. Exam Vital Signs Vital Sign - Last Date Time Temp Pulse Resp B/P Pulse Ox O2 Delivery O2 Flow Rate FiO2 11/22/16 16:03 37.0 89 24 186/93 97 Room Air Intake and Output 11/21/16 11/21/16 11/22/16 Cumulative From/Thru 15:00 23:00 07:00 11/21/16 20:14 - 11/22/16 06:23 Intake Total 1000 ml 1805 ml 2805 ml Output Total 275 ml 275 ml Balance 1000 ml 1530 ml 2530 ml Intake Oral 600 ml 600 ml IV Total 1000 ml 1205 ml 2205 ml Output Urine Total 275 ml 275 ml # Voids 1 1 # Bowel Movements 5 5 Exam GEN: alert, awake, in mild distress, appears uncomfortable, tremulous, anxious appearing HEENT: NC/AT, pinpoint pupils, EOMI, sclera anicteric, moist mucous membranes Neck: Supple, Non-tender, Full range of motion CV: Regular rate and rhythm, radial and dorsal pulses intact and normal Resp: diffuse coarse breath sounds throughout, no respiratory distress Abd: obese, soft, tender to deep palpation at RLQ Ext: 2+ pitting edema to below knees bilaterally Skin: warm, dry and intact, no cyanosis, mild venous stasis Neuro: alert and oriented, slow speech Psych: anxious, alert and oriented. IVs and Medications Medications Reviewed: Medications were reviewed in detail Lab and Diagnostics Result Diagram: 11/22/16 03411/22/16 034 X-Rays, CTs and MRIs CT ABDOMEN AND PELVIS WITH CONTRAST IMPRESSION: 1. Cause of abdominal pain is not identified. No evidence for acute disease. Dictated by: Niranjan Ochoa M.D. on 11/22/2016 at 7:34 this report corresponds to the findings of the preliminary NSR report. X-RAY CHEST ONE VIEW, PORTABLE IMPRESSION: No acute cardiopulmonary disease process. Dictated by: Nakita Salas MD, PhD on 11/21/2016 at 20:57 12-lead ECG ECG Interpretation: Normal sinus rhtyhm. Rate 75. Significant baseline interference. Time: 21:03 Interpreted by: ED physician Assessment & Plan Keenan Atwood is a 76 year old man with past medical history significant for alcohol abuse, hypertension, CAD, diabetes, and COPD presents to the ED via EMS complaining of nausea. Currently under treatment for EtOH withdrawal and abdominal pain. Hospital day #2 Anion gap metabolic acidosis secondary to lactic acid in the setting of EtOH intoxication, present on admission. Acute. - Lactic acid normalized, will repeat BMP tomorrow - Continue IVF EtOH withdrawal, not present on admission, active. -[facility] protocol -Chemical dependency consultation RLQ abdominal pain, likely secondary to constipation, present on admission. Acute. - CT not revealing of significant pathology. - Patient given mag citrate with good results - If patient continues to have pain after bowel movements will consider other etiology. - Stool PCR negative. Stop PO vancomycin. Possible left lower lobe pneumonia, ruled out - Official read of CXR negative for PNA Chronic conditions: COPD not on home oxygen - Continue home medication albuterol HFA CAD status post 2 stents - on telemetry Hypertension - continue home dose lisinopril and furosemide Hyperlipidemia - continue home dose atorvastatin TALIB noncompliant with CPAP Depression and anxiety - continue home dose fluoxetine and mirtazapine, lorazepam when necessary GERD - continue home dose omeprazole BPH - continue home dose tamsulosin Hx of stroke - continue home dose aspirin Chronic right hip pain secondary to OA - Oxycodone Acetaminophen-fever/headache/mild/moderate pain Antiemetics, as needed Bowel regimen, as needed. Disposition: Anticipate patient will be in the hospital for 1-2 more days as he is evaluated and treated for the above conditions. GI Prophylaxis: Not indicated VTE Prophylaxis: Sub-Q Heparin (Unfractionated) Resuscitation Status: CPR: Attempt Resuscitation (Shock once) Attending Statement I interviewed and examined the patient on rounds. I agree with the assessment and plan as stated above. Yesy Thomas DO November 22, 2016 17:53 Cornelio Watson MD November 23, 2016 17:05
--- NOTE | 2016-11-22 18:09 | NUR ---
CIWA/bowel movement Pt having CIWA scores >10 in the AM, pt having a headache, is tremulous, agitated, anxious, and hypertensive. Given IV valium with a improvement in withdrawal symptoms. Continue to monitor for s/s of withdrawal. Pt given mag citrate and had frequent bowel movements after. They were liquid/loose and had mucus. Stool PCR sent. sample also sent to check for occult blood. Pt incontinent of bowel and had frequent niya care, groin is excoriated and red. calmoseptine ointment applied.
[2016-11-22] MEDS: oxyCODONE-Acetamin 5-325 mg Tablet PO PRN (18:42)
[2016-11-22] MEDS: Albuterol 2.5 mg/3 mL Inhalation Solution NEB SCH (20:00)
[2016-11-23] VITALS (8 sets, daily range): BP systolic 148–180; BP diastolic 57–90; PULSE 74–101; RESP 18–22; O2SAT 94–98
[2016-11-23] MEDS: Heparin 5,000 Unit/mL Inj SUBQ SCH ×3 (00:48→16:27)
--- NOTE | 2016-11-23 03:32 | NUR ---
Tele/CIWA Reinforced IV was leaking, NS @ TKO, CIWA: 16 gave 10 Mg IV Diazepam, Pt was able to relax and sleep when not disturbed for care. 2 L O2 per NC, NS @ TKO, . Tele: -,
[2016-11-23] MEDS: Albuterol 2.5 mg/3 mL Inhalation Solution NEB SCH ×6 (04:00→20:00)
[2016-11-23 07:37] LABS: BASOPHILS % (AUTO) 0.1 % (0-3); EOSINOPHILS % (AUTO) 0.1 % (0-5); MONOCYTES % (AUTO) 11.4 % (4-12); Mean Corpuscular Hemoglobin 34.4 pg (27.0-35.0); Mean Corpuscular Volume 98.9 fL (81-100); NEUTROPHILS % (AUTO) 79.3 % (40-74); Platelet Count 269 bil/L (150-400)
[2016-11-23] MEDS ORDERED: KCl 40 mEq/D5W 500 mL 40 MEQ in IV Premix 1 EACH IV ONE (08:20)
[2016-11-23] MEDS: Polyethylene Glycol (PEG) 17 Gm Powder PO SCH (08:30)
[2016-11-23] MEDS: Thiamine Inj 100 MG in 0.9% Sodium Chloride 100 ML IV SCH (09:06)
[2016-11-23] MEDS: Multivit-Miner-Folic Acid-Iron Tablet PO SCH (09:19)
[2016-11-23] MEDS: oxyCODONE-Acetamin 5-325 mg Tablet PO PRN (09:33)
[2016-11-23] MEDS: Potassium Chloride 20 mEq SR Tablet PO SCH ×4 (09:40→22:13)
--- NOTE | 2016-11-23 10:14 | NUR ---
Spoke with Sachi in patient access at [facility] and patient is 30% service connected, he also holds MCR A. PCP is Jigar Tyson at [facility]. unit control worker is Katie Henning [phone] fax [phone]
--- NOTE | 2016-11-23 13:55 | PCM.PNMED ---
Subjective Date of Service November 23, 2016 Subjective Michi Atwood is a 76 year old man with past medical history significant for alcohol abuse, hypertension, CAD, diabetes, and COPD presents to the ED via EMS complaining of nausea. Currently under treatment for EtOH withdrawal and abdominal pain. Hospital day #3 Overnight: CIWA was noted to be 16 overnight. Today: Patient states that he feels better but, still quite "sick." The patient states that his abdominal discomfort has reduced. He states that he still feels quite anxious and tremulous. He denies any fevers, chills, nausea. The remainder of the review of systems is negative except as noted above. Exam Vital Signs Vital Sign - Last Date Time Temp Pulse Resp B/P Pulse Ox O2 Delivery O2 Flow Rate FiO2 11/23/16 12:25 37.5 78 20 168/57 94 Nasal Cannula 1.00 Intake and Output 11/22/16 11/22/16 11/23/16 Cumulative From/Thru 15:00 23:00 07:00 11/21/16 20:14 - 11/23/16 06:27 Intake Total 2357 ml 517 ml 5679 ml Output Total 300 ml 575 ml Balance 2057 ml 517 ml 5104 ml Intake Oral 675 ml 400 ml 1675 ml IV Total 1682 ml 117 ml 4004 ml Output Urine Total 150 ml 425 ml Stool Total 150 ml 150 ml # Voids 2 5 8 # Bowel Movements 11 2 18 Exam GEN: alert, awake, in no acute distress, anxious appearing HEENT: NC/AT, pupils equal round and reactive to light and accommodation, EOMI, sclera anicteric, moist mucous membranes Neck: Supple, Non-tender, Full range of motion CV: Regular rate and rhythm, radial and dorsal pulses intact and normal Resp: diffuse coarse breath sounds throughout, no respiratory distress Abd: obese, soft, no tenderness to palpation noted, less distended than yesterday. Ext: 2+ pitting edema to below knees bilaterally Skin: warm, dry and intact, no cyanosis, mild venous stasis Neuro: alert and oriented, slow speech Psych: anxious, alert and oriented. IVs and Medications Medications Reviewed: Medications were reviewed in detail Lab and Diagnostics Result Diagram: 11/23/1671711/23/16717 X-Rays, CTs and MRIs CT ABDOMEN AND PELVIS WITH CONTRAST IMPRESSION: 1. Cause of abdominal pain is not identified. No evidence for acute disease. Dictated by: Niranjan Ochoa M.D. on 11/22/2016 at 7:34 this report corresponds to the findings of the preliminary NSR report. X-RAY CHEST ONE VIEW, PORTABLE IMPRESSION: No acute cardiopulmonary disease process. Dictated by: Nakita Salas MD, PhD on 11/21/2016 at 20:57 12-lead ECG ECG Interpretation: Normal sinus rhtyhm. Rate 75. Significant baseline interference. Time: 21:03 Interpreted by: ED physician Assessment & Plan Keenan Atwood is a 76 year old man with past medical history significant for alcohol abuse, hypertension, CAD, diabetes, and COPD presents to the ED via EMS complaining of nausea. Currently under treatment for EtOH withdrawal and abdominal pain. Hospital day #3 EtOH withdrawal, not present on admission, active. -CIWA protocol -Chemical dependency consultation Anion gap metabolic acidosis secondary to lactic acid in the setting of EtOH intoxication, present on admission. Resolved. - Lactic acid normalized, will repeat BMP tomorrow - Continue IVF RLQ abdominal pain, likely secondary to constipation, present on admission. Improved - CT not revealing of significant pathology. - Patient given mag citrate with good results - Stool PCR negative. Stop PO vancomycin. Possible left lower lobe pneumonia, ruled out - Official read of CXR negative for PNA Chronic conditions: COPD not on home oxygen - Continue home medication albuterol HFA CAD status post 2 stents - on telemetry Hypertension - continue home dose lisinopril and furosemide Hyperlipidemia - continue home dose atorvastatin TALIB noncompliant with CPAP Depression and anxiety - continue home dose fluoxetine and mirtazapine, lorazepam when necessary GERD - continue home dose omeprazole BPH - continue home dose tamsulosin Hx of stroke - continue home dose aspirin Chronic right hip pain secondary to OA - Oxycodone Acetaminophen-fever/headache/mild/moderate pain Antiemetics, as needed Bowel regimen, as needed. Disposition: Anticipate patient will be in the hospital for 1-2 more days as he is evaluated and treated for the above conditions. GI Prophylaxis: Not indicated VTE Prophylaxis: Sub-Q Heparin (Unfractionated) Resuscitation Status: CPR: Attempt Resuscitation (Shock once) Attending Statement I interviewed and examined the patient on rounds today. Abdomen pain improved after laxatives. He needs aggressive potassium. I agree with the assessment and plan as stated above. Yesy Thomas DO November 23, 2016 13:50 Cornelio Watson MD November 23, 2016 17:06
[2016-11-23] MEDS ORDERED: Potassium Chloride 20 mEq SR Tablet PO ONE (15:45)
--- NOTE | 2016-11-23 16:14 | NUR ---
Social Work-attempted initial assessment/ CD assessment: Data & assessment:EMR Reviewed. PT is a 76 y/o male who was admitted on 11/22/16 for RLL pneumonia per H&P. Pt's [facility] is [facility] and PCP is Niranjan Nettles MD. EMR Reviewed. SW attempted to see pt today,but pt's CIWA is 16 not appropriate for an assessment. SW to follow up with assessment when more appropriate. SW will continue to follow. Plan:SW to follow up with initial assessment and CD assessment when appropriate. Pt's CIWA 16 today. SW will continue to follow. BRIONNA Suarez Addendum: 11/23/16 at 1619 by REJI GIBSON MD order has been obtained for CD assessment. BRIONNA Suarez
--- NOTE | 2016-11-23 18:29 | NUR ---
CIWA/anxiety/dentures Pt stated excessive anxiety in the morning and appeared restless and diaphoretic. CIWA 12. Valium 10mg given. Pt fell asleep quickly afterward. Respirations 18, pt slept for about 30 minutes. Pt was in and out of sleep most of the rest of the shift. Pt would ask about something for anxiety but would quickly afterwards be asleep. Later in the evening pt appeared more calm and much less diaphoretic and restless. CIWA 3. Pt still complained of anxiety. I discussed this with who stated it was okay to give Valium 5mg to help relieve this anxiety. 5mg given at 1830. Pt appears calm. Pt does not have glue that secures his dentures in his mouth and this is not something we carry at the hospital. Pt unable to eat many foods because the loose dentures hurt his jaw. notified. Diet changed to soft.
[2016-11-24] VITALS (12 sets, daily range): BP systolic 137–177; BP diastolic 81–103; PULSE 50–103; RESP 18–24; O2SAT 93–97
[2016-11-24] MEDS: Heparin 5,000 Unit/mL Inj SUBQ SCH ×3 (00:44→17:21)
--- NOTE | 2016-11-24 03:03 | NUR ---
Anxiety/BP C/O anxiety , scored CIWA , 13, 16 , gave 5 Mg and 10 Mg Valium IV,this seemed to help with anxiety and allow sleep, Had elevated BP x 4 ,with systolic above 160, paged hospitalist and Lisinopril was ordered and given . Patient expressed concern about being in hospital 3 days, 2 L O2 per NC, NS @ TKO , Telemetry : 70 1st degree, IVCD, Bi geminal
[2016-11-24 03:44] LABS: BASOPHILS % (AUTO) 0.1 % (0-3); EOSINOPHILS % (AUTO) 0.1 % (0-5); MONOCYTES % (AUTO) 10.6 % (4-12); Mean Corpuscular Hemoglobin 34.3 pg (27.0-35.0); Mean Corpuscular Volume 99.7 fL (81-100); Platelet Count 224 bil/L (150-400)
[2016-11-24] MEDS: Albuterol 2.5 mg/3 mL Inhalation Solution NEB SCH ×6 (04:00→20:27)
[2016-11-24] MEDS: Potassium Chloride 20 mEq SR Tablet PO SCH (06:01)
[2016-11-24] MEDS: Thiamine Inj 100 MG in 0.9% Sodium Chloride 100 ML IV SCH (07:57)
[2016-11-24] MEDS: Multivit-Miner-Folic Acid-Iron Tablet PO SCH (07:58)
[2016-11-24] MEDS: oxyCODONE-Acetamin 5-325 mg Tablet PO PRN ×3 (07:59→22:56)
[2016-11-24] MEDS: Polyethylene Glycol (PEG) 17 Gm Powder PO SCH (08:30)
--- NOTE | 2016-11-24 13:44 | NUR ---
Social Work- attempted initial assessment: Data:EMR reviewed. Pt is a 76 y/o male who was admitted on 11/22/16 for RLL pneumonia per H&P. Pt's insurance is [employer] and PCP is Niranjan Nettles MD. EMR Reviewed. SW attempted to see pt at bedside, SW role explained. Pt able to tell SW that he is now living at [facility], but continues to fall back asleep during conversation. SW attempted to awaken pt, but pt not able to stay awake to complete assessment. SW placed a call to pt's son in law [phone] and daughter Dali [phone] and left messages on both of their phones, requesting a return call. SW placed a call and spoke with Penny at [facility] who confirms that pt lives on independent living. PT saw pt today and recommended ALEX with Services,SW to await MD orders. SW to complete assessment and CD assessment when pt is more appropriate. SW will continue to follow. Assessment:Pt who resides at [facility] independent [facility]. Plan:SW to follow up with assessment and CD assessment when appropriate. SW left message with pt' daughter and son in law. Pt resides at [facility] I living. SW will continue to follow. RBIONNA Suarez
--- NOTE | 2016-11-24 15:20 | PCM.PNMED ---
Subjective Date of Service November 24, 2016 Subjective Michi Atwood is a 76 year old man with past medical history significant for alcohol abuse, hypertension, CAD, diabetes, and COPD presents to the ED via EMS complaining of nausea. Currently under treatment for EtOH withdrawal and abdominal pain. Hospital day #3 Overnight: CIWA was noted to be 5 overnight. Today: The patient states that he will likely go back to drinking beer but he will quit drinking hard liquor. He states that he would like to rest more and he still feels tired. He states that he still feels quite anxious and tremulous. He denies any fevers, chills, nausea. The remainder of the review of systems is negative except as noted above. Exam Vital Signs Vital Sign - Last Date Time Temp Pulse Resp B/P Pulse Ox O2 Delivery O2 Flow Rate FiO2 11/24/16 14:46 83 18 95 Room Air 11/24/16 12:25 36.6 137/93 2.00 Intake and Output 11/23/16 11/23/16 11/24/16 Cumulative From/Thru 15:00 23:00 07:00 11/21/16 20:14 - 11/24/16 06:08 Intake Total 1173 ml 1015 ml 7867 ml Output Total 200 ml 775 ml Balance 1173 ml 815 ml 7092 ml Intake Oral 800 ml 900 ml 3375 ml IV Total 373 ml 115 ml 4492 ml Output Urine Total 200 ml 625 ml Stool Total 150 ml # Voids 2 3 13 # Bowel Movements 1 3 22 Exam GEN: alert, awake, in no acute distress, anxious appearing HEENT: NC/AT, pupils equal round and reactive to light and accommodation, EOMI, sclera anicteric, moist mucous membranes Neck: Supple, Non-tender, Full range of motion CV: Regular rate and rhythm, radial and dorsal pulses intact and normal Resp: diffuse coarse breath sounds throughout, no respiratory distress Abd: obese, soft, no tenderness to palpation noted, less distended than yesterday. Ext: mild pitting edema to below knees bilaterally Skin: warm, dry and intact, no cyanosis, mild venous stasis Neuro: alert and oriented, slow speech Psych: anxious, alert and oriented. IVs and Medications Medications Reviewed: Medications were reviewed in detail Lab and Diagnostics Result Diagram: 11/24/16 0330 11/24/16 0330 X-Rays, CTs and MRIs CT ABDOMEN AND PELVIS WITH CONTRAST IMPRESSION: 1. Cause of abdominal pain is not identified. No evidence for acute disease. Dictated by: Niranjan Ochoa M.D. on 11/22/2016 at 7:34 this report corresponds to the findings of the preliminary NSR report. X-RAY CHEST ONE VIEW, PORTABLE IMPRESSION: No acute cardiopulmonary disease process. Dictated by: Naikta Salas MD, PhD on 11/21/2016 at 20:57 12-lead ECG ECG Interpretation: Normal sinus rhtyhm. Rate 75. Significant baseline interference. Time: 21:03 Interpreted by: ED physician Assessment & Plan Keenan Atwood is a 76 year old man with past medical history significant for alcohol abuse, hypertension, CAD, diabetes, and COPD presents to the ED via EMS complaining of nausea. Currently under treatment for EtOH withdrawal and abdominal pain. Hospital day #3 EtOH withdrawal, not present on admission, active. -CIWA protocol -Chemical dependency consultation Anion gap metabolic acidosis secondary to lactic acid in the setting of EtOH intoxication, present on admission. Resolved. - Lactic acid normalized, will repeat BMP tomorrow - Continue IVF RLQ abdominal pain, likely secondary to constipation, present on admission. Improved - CT not revealing of significant pathology. - Patient given mag citrate with good results - Stool PCR negative. Stop PO vancomycin. Possible left lower lobe pneumonia, ruled out - Official read of CXR negative for PNA Chronic conditions: COPD not on home oxygen - Continue home medication albuterol HFA CAD status post 2 stents - on telemetry Hypertension - continue home dose lisinopril and furosemide Hyperlipidemia - continue home dose atorvastatin TALIB noncompliant with CPAP Depression and anxiety - continue home dose fluoxetine and mirtazapine, lorazepam when necessary GERD - continue home dose omeprazole BPH - continue home dose tamsulosin Hx of stroke - continue home dose aspirin Chronic right hip pain secondary to OA - Oxycodone Acetaminophen-fever/headache/mild/moderate pain Antiemetics, as needed Bowel regimen, as needed. Disposition: Anticipate patient will be in the hospital for 1-2 more days as he is evaluated and treated for the above conditions. GI Prophylaxis: Not indicated VTE Prophylaxis: Sub-Q Heparin (Unfractionated) Resuscitation Status: CPR: Attempt Resuscitation (Shock once) Attending Statement I interviewed and examined the patient on rounds today. I agree with the assessment and plan as stated above. Anticipate discharge on 11/25. Yesy Thomas DO November 24, 2016 15:16 Cornelio Watson MD November 24, 2016 15:55
[2016-11-24] MEDS ORDERED: Potassium Chloride 20 mEq SR Tablet PO ONE (18:10)
--- NOTE | 2016-11-24 19:28 | NUR ---
CIWA/BP/Temp CIWA score of 9 for increased anxiety, increased BP, and increased sweating. Valium given X2. Percocet given X2 for back pain and abdominal pain. BP162/84, notified. Temp was 37.8 this afternoon. After percocet given, Temp 36.8. Friend at the bedside this evening.
--- NOTE | 2016-11-24 20:08 | NUR ---
Case Management: Explained IMM to patient at 1935, all questions answered. Signed original placed in chart, copy given to patient. Vane Blount RN
--- NOTE | 2016-11-24 22:47 | NUR ---
Transfer to Room Pt transferred to RM 3011 with all belongings and medications. Patient aware of need to transfer to different floor. Report given to Mariana. Valium given for ciwa 10. Pt gets anxious at times and requests something to "help sleep or relax" when awake.
[2016-11-25] VITALS (11 sets, daily range): BP systolic 142–167; BP diastolic 57–85; PULSE 73–96; RESP 13–22; O2SAT 93–99
[2016-11-25] MEDS: Heparin 5,000 Unit/mL Inj SUBQ SCH ×4 (00:30→23:52)
[2016-11-25] MEDS: Albuterol 2.5 mg/3 mL Inhalation Solution NEB SCH ×6 (04:00→20:46)
[2016-11-25] MEDS: oxyCODONE-Acetamin 5-325 mg Tablet PO PRN ×4 (04:41→23:49)
[2016-11-25 06:20] LABS: BASOPHILS % (AUTO) 0.2 % (0-3); EOSINOPHILS % (AUTO) 1.4 % (0-5); MONOCYTES % (AUTO) 9.4 % (4-12); Mean Corpuscular Hemoglobin 33.7 pg (27.0-35.0); Mean Corpuscular Volume 96.8 fL (81-100); NEUTROPHILS % (AUTO) 71.1 % (40-74); Platelet Count 213 bil/L (150-400)
--- NOTE | 2016-11-25 06:25 | NUR ---
CIWA Valium given for CIWA of 12 and per pt's request to help him "relax and sleep"-effective. 2L O2 @HS for TALIB; sats in low 90s.
[2016-11-25] MEDS: Multivit-Miner-Folic Acid-Iron Tablet PO SCH (08:30)
[2016-11-25] MEDS: Polyethylene Glycol (PEG) 17 Gm Powder PO SCH (08:30)
--- NOTE | 2016-11-25 13:30 | PCM.PNMED ---
Subjective Date of Service November 25, 2016 Subjective pt was drowsy, denied BARRON, anxiety easily fell asleep AAOx3 no n/v CIWA>10 this AM on protocol Exam Vital Signs Vital Sign - Last Date Time Temp Pulse Resp B/P Pulse Ox O2 Delivery O2 Flow Rate FiO2 11/25/16 08:10 36.7 89 13 167/85 96 Nasal Cannula 2.00 Intake and Output 11/24/16 11/24/16 11/25/16 Cumulative From/Thru 15:00 23:00 07:00 11/21/16 20:14 - 11/25/16 06:18 Intake Total 752 ml 0 ml 8619 ml Output Total 900 ml 0 ml 1675 ml Balance -148 ml 0 ml 6944 ml Intake Oral 537 ml 0 ml 3912 ml IV Total 215 ml 4707 ml Output Urine Total 700 ml 0 ml 1325 ml Stool Total 200 ml 350 ml # Voids 13 # Bowel Movements 1 23 Exam unable to follow detailed instruction, comfortable, drowsy no JVD, MMM, no LAD RRR, nl s1, s2 no mrg CTAB, no w,c S,ND,NT,normoactive BS+ warm, no edema, pulses 2/2 Lab and Diagnostics Result Diagram: 11/25/16 0545 11/25/16 0545 X-Rays, CTs and MRIs CT ABDOMEN AND PELVIS WITH CONTRAST IMPRESSION: 1. Cause of abdominal pain is not identified. No evidence for acute disease. Dictated by: Niranjan Ochoa M.D. on 11/22/2016 at 7:34 this report corresponds to the findings of the preliminary NSR report. X-RAY CHEST ONE VIEW, PORTABLE IMPRESSION: No acute cardiopulmonary disease process. Dictated by: Nakita Salas MD, PhD on 11/21/2016 at 20:57 12-lead ECG ECG Interpretation: Normal sinus rhtyhm. Rate 75. Significant baseline interference. Time: 21:03 Interpreted by: ED physician Assessment & Plan Keenan Atwood is a 76 year old man with past medical history significant for alcohol abuse, hypertension, CAD, diabetes, and COPD presents to the ED via EMS complaining of nausea. Currently under treatment for EtOH withdrawal and abdominal pain. Hospital day #3 EtOH withdrawal, not present on admission, active. -this is resolving, no s/s of DTs, continue CIWA protocol, avoid long-acting benzodiazepine -Chemical dependency consultation Anion gap metabolic acidosis secondary to lactic acid in the setting of EtOH intoxication, present on admission. Resolved. - Lactic acid normalized, will repeat BMP tomorrow - Continue IVF RLQ abdominal pain, likely secondary to constipation, present on admission. Improved - CT not revealing of significant pathology. - Patient given mag citrate with good results - Stool PCR negative. Stop PO vancomycin. Possible left lower lobe pneumonia, ruled out - Official read of CXR negative for PNA Chronic conditions: COPD not on home oxygen - Continue home medication albuterol HFA CAD status post 2 stents - on telemetry Hypertension - continue home dose lisinopril and furosemide Hyperlipidemia - continue home dose atorvastatin TALIB noncompliant with CPAP Depression and anxiety - continue home dose fluoxetine and mirtazapine, lorazepam when necessary GERD - continue home dose omeprazole BPH - continue home dose tamsulosin Hx of stroke - continue home dose aspirin Chronic right hip pain secondary to OA - Oxycodone Disposition: Anticipate patient will be in the hospital for 1-2 more days as he is evaluated and treated for the above conditions. GI Prophylaxis: Not indicated VTE Prophylaxis: Sub-Q Heparin (Unfractionated) Resuscitation Status: CPR: Attempt Resuscitation (Shock once) Time spent 35min Bettie Maddox MD November 25, 2016 10:07
--- NOTE | 2016-11-25 16:08 | NUR ---
Social Work: Initial Assessment Data: Pt is a 76 y/o male admitted for RLL pneumonia, sepsis. Pt's PCP is Dr Nettles, pt's insurance is Medicare. Readmit score is 5. EMR reviewed. FINAL INSTALLER INSPECTOR met with pt at bedside, role explained. Pt states he lives at [facility] independently and is wheelchair bound, pt can do all transfers by himself at baseline. Pt staes he has no hx of HH or SNF no LTC insurance and is [facility], UR specialist notified. PT recommending HH for PT. FINAL INSTALLER INSPECTOR received MD ALMANZA order for PT. FINAL INSTALLER INSPECTOR spoke with pt regarding recommendations, HH choice list given. Pt states no preference. FINAL INSTALLER INSPECTOR will continue to follow. Assessment: Pt who is independent at baseline, wheelchair at baseline. Plan: Pt will d/c home via POV with son or private pay wheelchair van. FINAL INSTALLER INSPECTOR will refer pt to [facility]ri[facility] AL[facility]ZA for PT on 11/25. FINAL INSTALLER INSPECTOR will continue to follow. BRIONNA Rodriguez Addendum: 11/25/16 at 1613 by NITO HILLIARD Amended: Links added.
--- NOTE | 2016-11-25 16:13 | NUR ---
Social Work: Attempted CD assessment HEAD OF ACADEMIC TECHNOLOGY met with pt regarding alcohol use. Pt reports that he drinks beer daily, and that the only reason that he is withdrawing is because he drank whiskey. He states he has no desire to quit and wants to keep drinking beer. HEAD OF ACADEMIC TECHNOLOGY asked pt if he is willing to meet with CDP from [place], or complete assessment with HEAD OF ACADEMIC TECHNOLOGY, or receive resources; pt declined all offers. BRIONNA Rodriguez
--- NOTE | 2016-11-25 17:53 | NUR ---
CIWA/Anxiety/Pain Pts. CIWA score throughout shift was 10-14, valium of 10mg IV push was administered. Pt. states his anxiety is really high and would like something other than valium to help control that anxiety. Pt. also c/o of uncontrolled pain, states his lower back is where the main problem is. Reports pain mediation given does not help but only take off the edge. Will continue to monitor.
[2016-11-26] VITALS (14 sets, daily range): BP systolic 122–158; BP diastolic 67–76; PULSE 70–94; RESP 14–25; O2SAT 94–99
--- NOTE | 2016-11-26 01:55 | NUR ---
IV Site painful with injections/flushes. A student tried twice and another RN tried twice unsuccessfully to start a new IV. Left message with IV therapy to place a new IV in morning.
[2016-11-26] MEDS: Albuterol 2.5 mg/3 mL Inhalation Solution NEB SCH ×6 (03:12→21:37)
[2016-11-26] MEDS: oxyCODONE-Acetamin 5-325 mg Tablet PO PRN ×2 (06:01→21:05)
[2016-11-26 06:14] LABS: BASOPHILS % (AUTO) 0.1 % (0-3); EOSINOPHILS % (AUTO) 3.7 % (0-5); MONOCYTES % (AUTO) 8.3 % (4-12); Mean Corpuscular Volume 97.1 fL (81-100); NEUTROPHILS % (AUTO) 71.2 % (40-74); Platelet Count 211 bil/L (150-400)
[2016-11-26 06:34] LABS: Magnesium 1.6 mg/dL (1.6-2.6)
[2016-11-26] MEDS ORDERED: Potassium Chloride 20 mEq SR Tablet PO ONE (07:15)
[2016-11-26] MEDS ORDERED: Magnesium Sulf 2 Gm/50mL Water 2 GM in IV Premix 1 EACH IV ONE (07:15)
[2016-11-26] MEDS: Multivit-Miner-Folic Acid-Iron Tablet PO SCH (07:30)
[2016-11-26] MEDS: Polyethylene Glycol (PEG) 17 Gm Powder PO SCH (07:31)
[2016-11-26] MEDS: Heparin 5,000 Unit/mL Inj SUBQ SCH ×2 (07:32→17:08)
--- NOTE | 2016-11-26 10:15 | PCM.PNMED ---
Subjective Date of Service November 26, 2016 Subjective pt was still in WD overnight, CIWA>10, and this AM with shaking hands complained of back pain from laying down on the bed all day doesn't want to quit alcohol but stated that he drinks only 10beers a day alert mildly anxious, denied BARRON, nausea, formication, VH/AH Exam Vital Signs Vital Sign - Last Date Time Temp Pulse Resp B/P Pulse Ox O2 Delivery O2 Flow Rate FiO2 11/26/16 09:45 Supplement Oxygen 11/26/16 08:20 36.7 94 16 122/72 97 2.00 Intake and Output 11/25/16 11/25/16 11/26/16 Cumulative From/Thru 15:00 23:00 07:00 11/21/16 20:14 - 11/25/16 19:38 Intake Total 1555 ml 19228 ml Output Total 500 ml 2175 ml Balance 1055 ml 7999 ml Intake Oral 1555 ml 5467 ml IV Total 4707 ml Output Urine Total 500 ml 1825 ml Stool Total 350 ml # Voids 1 14 # Bowel Movements 0 23 Exam mildly agitated, no JVD, MMM, no LAD, gross tremors on extended arms bilaterally RRR, nl s1, s2 no mrg CTAB, no w,c S,ND,NT,normoactive BS+ warm, no edema, pulses 2/2 IVs and Medications Medications Reviewed: Medications were reviewed in detail Lab and Diagnostics Result Diagram: 11/26/16 0600 11/26/16 0600 X-Rays, CTs and MRIs CT ABDOMEN AND PELVIS WITH CONTRAST IMPRESSION: 1. Cause of abdominal pain is not identified. No evidence for acute disease. Dictated by: Niranjan Ochoa M.D. on 11/22/2016 at 7:34 this report corresponds to the findings of the preliminary NSR report. X-RAY CHEST ONE VIEW, PORTABLE IMPRESSION: No acute cardiopulmonary disease process. Dictated by: Nakita Salas MD, PhD on 11/21/2016 at 20:57 12-lead ECG ECG Interpretation: Normal sinus rhtyhm. Rate 75. Significant baseline interference. Time: 21:03 Interpreted by: ED physician Assessment & Plan Keenan Atwood is a 76 year old man with past medical history significant for alcohol abuse, hypertension, CAD, diabetes, and COPD presents to the ED via EMS complaining of nausea. Currently under treatment for EtOH withdrawal and abdominal pain. Hospital day #3 EtOH withdrawal, not present on admission, active. -this is resolving, no s/s of DTs, continue CIWA protocol, avoid long-acting benzodiazepine -Chemical dependency consultation Anion gap metabolic acidosis secondary to lactic acid in the setting of EtOH intoxication, present on admission. Resolved. - Lactic acid normalized, will repeat BMP tomorrow - Continue IVF RLQ abdominal pain, likely secondary to constipation, present on admission. Improved - CT not revealing of significant pathology. - Patient given mag citrate with good results - Stool PCR negative. Stop PO vancomycin. Possible left lower lobe pneumonia, ruled out - Official read of CXR negative for PNA back pain, likely MSK, will try tylenol today Chronic conditions: COPD not on home oxygen - Continue home medication albuterol HFA CAD status post 2 stents - on telemetry Hypertension - continue home dose lisinopril and furosemide Hyperlipidemia - continue home dose atorvastatin TALIB noncompliant with CPAP Depression and anxiety - continue home dose fluoxetine and mirtazapine, lorazepam when necessary GERD - continue home dose omeprazole BPH - continue home dose tamsulosin Hx of stroke - continue home dose aspirin Chronic right hip pain secondary to OA - Oxycodone Disposition: likely 1-2more days, home with HH, reportedly pt is WC bound, from [facility] nikhil PT input GI Prophylaxis: Not indicated VTE Prophylaxis: Sub-Q Heparin (Unfractionated) Resuscitation Status: CPR: Attempt Resuscitation (Shock once) Time spent 35min Bettie Maddox MD November 26, 2016 10:15
--- NOTE | 2016-11-26 12:56 | NUR ---
sleeping pt has been sleeping since getting his Ultram at approximately 1115 today. No CIWA done
--- NOTE | 2016-11-26 16:12 | NUR ---
back pain pt states that his back pain is getting worse. He attributes this to being in bed too much. This RN was able to get pt up and into his W/C with VB NET PROGRAMMER, pt was only able to sit there for approximately 15 minutes. pt states that the pain medications are " not even touching the pain" and that over the years pt has developed a high tolerance to medications. paged
--- NOTE | 2016-11-26 18:47 | NUR ---
K-pad pt was placed on a K-pad in an attempt to relieve his low back pain.
[2016-11-27] VITALS (12 sets, daily range): BP systolic 126–158; BP diastolic 62–84; PULSE 70–88; RESP 16–20; O2SAT 76–97
[2016-11-27] MEDS: Heparin 5,000 Unit/mL Inj SUBQ SCH ×3 (00:17→18:13)
[2016-11-27] MEDS: Albuterol 2.5 mg/3 mL Inhalation Solution NEB SCH ×6 (02:31→21:55)
[2016-11-27] MEDS: oxyCODONE-Acetamin 5-325 mg Tablet PO PRN (03:59)
--- NOTE | 2016-11-27 07:26 | NUR ---
Pain Pt c/o severe lower back pain 12/10 at the beginning of the shift, pt very agitated and stated his pain not controlled, "I got here on Tuesday. I did not get any pain med until noon". "I am going to take the hospital to court". The available pain med order at the beginning of the shift : Tylenol 975mg q6h scheduled, Tramadol 100mg q6h prn, Gabapentin scheduled. Terell Braswell, PRESLEY day shift, said he paged MD 6 times, only got Tramadol increased to 100mg from 50mg, Percocet discontinued. Charge nurse Rosa Munoz informed the condition, night hospitalist contacted at the beginning of the shift, Percocet 1 q6h prn ordered, and administered q6h when it is due, as well as Tylenol and Gabapentin, k-pad applied at back. Diazepam given x3 due to CIWA score increase to 11 when pt agitated and severe pain. Pain controlled well down to 2/10 during the night, pt sleeping well in between care. Pt is satisfied with the pain control and expresses thanks to RN to take good care of him.
[2016-11-27] MEDS: Polyethylene Glycol (PEG) 17 Gm Powder PO SCH (08:30)
[2016-11-27] MEDS ORDERED: Ketorolac 15 mg/mL Inj IVPUSH PRN (08:50)
[2016-11-27] MEDS: Multivit-Miner-Folic Acid-Iron Tablet PO SCH (08:58)
--- NOTE | 2016-11-27 11:04 | PCM.PNMED ---
Subjective Date of Service November 27, 2016 Subjective He is seen today in his room to follow up alcohol withdrawal and musculoskeletal pain complaints. He says that his low back has been killing him because he has been lying in bed for so many days. He has been receiving significant doses of Percocet tramadol and gabapentin. His potassium today is 3.4. He will need home health or [facility] facility physical therapy at discharge. Exam Vital Signs Vital Sign - Last Date Time Temp Pulse Resp B/P Pulse Ox O2 Delivery O2 Flow Rate FiO2 11/27/16 07:26 78 20 94 Nasal Cannula 1.00 11/27/16 04:30 36.4 158/66 Intake and Output 11/26/16 11/26/16 11/27/16 Cumulative From/Thru 15:00 23:00 07:00 11/21/16 20:14 - 11/26/16 20:11 Intake Total 650 ml 1261 ml 60556 ml Output Total 750 ml 875 ml 3800 ml Balance -100 ml 386 ml 8285 ml Intake Oral 650 ml 1261 ml 7378 ml IV Total 4707 ml Output Urine Total 750 ml 875 ml 3450 ml Stool Total 350 ml # Voids 14 # Bowel Movements 0 23 Exam Heart is regular rate and rhythm without murmur Lungs are clear to auscultation bilaterally Extremities have no ankle edema Abdomen is soft, nontender, no organomegaly, bowel sounds are active. He does have some tenderness in the low back. This appears to be chronic and not suggestive of an acute compression fracture. IVs and Medications Medications Reviewed: Medications were reviewed in detail Lab and Diagnostics Result Diagram: 11/26/16 0600 11/27/16 0810 X-Rays, CTs and MRIs CT ABDOMEN AND PELVIS WITH CONTRAST IMPRESSION: 1. Cause of abdominal pain is not identified. No evidence for acute disease. Dictated by: Niranjan Ochoa M.D. on 11/22/2016 at 7:34 this report corresponds to the findings of the preliminary NSR report. X-RAY CHEST ONE VIEW, PORTABLE IMPRESSION: No acute cardiopulmonary disease process. Dictated by: Nakita Salas MD, PhD on 11/21/2016 at 20:57 12-lead ECG ECG Interpretation: Normal sinus rhtyhm. Rate 75. Significant baseline interference. Time: 21:03 Interpreted by: ED physician Assessment & Plan Keenan Atwood is a 76 year old man with past medical history significant for alcohol abuse, hypertension, CAD, diabetes, and COPD presents to the ED via EMS complaining of nausea. Currently under treatment for EtOH withdrawal and abdominal pain. Hospital day #4 EtOH withdrawal, not present on admission, active. -this is resolving, no s/s of DTs, continue CIWA protocol, avoid long-acting benzodiazepine -Chemical dependency consultation Anion gap metabolic acidosis secondary to lactic acid in the setting of EtOH intoxication, present on admission. Resolved. - Lactic acid normalized, low potassium of 3.4 is the only BMP abnormality today. - Continue IVF RLQ abdominal pain, likely secondary to constipation, present on admission. Improved - CT not revealing of significant pathology. - Patient given mag citrate with good results - Stool PCR negative. Stopped PO vancomycin already. Possible left lower lobe pneumonia, ruled out - Official read of CXR negative for PNA back pain, likely MSK, will try Toradol for a limited period of time and change the Percocet to oxycodone to avoid going over the recommended dosing limits of acetaminophen. Chronic conditions: COPD not on home oxygen - Continue home medication albuterol HFA CAD status post 2 stents - on telemetry Hypertension - continue home dose lisinopril and furosemide Hyperlipidemia - continue home dose atorvastatin TALIB noncompliant with CPAP Depression and anxiety - continue home dose fluoxetine and mirtazapine, lorazepam when necessary GERD - continue home dose omeprazole BPH - continue home dose tamsulosin Hx of stroke - continue home dose aspirin Chronic right hip pain secondary to OA - Oxycodone Disposition: likely 1 more days, home with HH or SNF, reportedly pt is WC bound , from [facility] appreciate PT input Ky Flores M.D. Pain Evaluation: Pain not Controlled GI Prophylaxis: Not indicated VTE Prophylaxis: Sub-Q Heparin (Unfractionated) VTE Mechanical Devices: Intermittant Pneumatic CD Resuscitation Status: CPR: Attempt Resuscitation (Shock once) Mayda Flores MD November 27, 2016 09:17
[2016-11-27] MEDS: Morphine ER 30 mg (MS Contin) Tablet PO SCH ×2 (13:41→21:27)
--- NOTE | 2016-11-27 16:10 | NUR ---
Social Work: Readiness for d/c Data: Pt is on day 5 of hospitalization. MD states pt likely ready for d/c in 1-2 days. ELECTRONIC SECURITY TECHNICIAN met with pt regarding D/C plan. Pt continues to want to go back to [facility] with . PT currently recommending SNF, ELECTRONIC SECURITY TECHNICIAN explained this, pt declines at this time. ELECTRONIC SECURITY TECHNICIAN will continue to follow. Plan: Home with [facility], ELECTRONIC SECURITY TECHNICIAN yet to refer. ELECTRONIC SECURITY TECHNICIAN will continue to follow. BRIONNA Rodriguez
--- NOTE | 2016-11-27 18:33 | NUR ---
Staple removal/Dressing change Assessed surgical site and removed existing bandages. Medial upper thigh staple site was red, mildly swollen, with scant amount of yellow drainage. Proximal surgical site where staple were removed under lower left abd also had scant amount of yellow drainage and a palpable 4 inch hard lump was present. notified and assessed patient. MD stated that surgical sites did look red but healing normally. Per MD orders this RN removed all left leg rosalina, cleaned surgical sites with NS and covered with Island dressing. Wound care consult ordered for Tuesday. Left lower extremity pulses were none palpable without Doppler. Pt stated that he had sensation and could wiggle his toes. Addendum: 11/27/16 at 1845 by NELA JANE RN Wrong patient
[2016-11-28] VITALS (7 sets, daily range): BP systolic 106–123; BP diastolic 48–73; PULSE 63–79; RESP 16–20; O2SAT 93–96
[2016-11-28] MEDS: Heparin 5,000 Unit/mL Inj SUBQ SCH ×2 (01:33→08:57)
--- NOTE | 2016-11-28 01:42 | NUR ---
Pain Pt is doing much better tonight with pain scoring. CIWA done and scoring 1-2. Pt sleeping most of the night after receiving one dose of oxycodone, MS contin and other scheduled medications.
[2016-11-28] MEDS: Albuterol 2.5 mg/3 mL Inhalation Solution NEB SCH ×4 (05:22→11:04)
[2016-11-28] MEDS: Polyethylene Glycol (PEG) 17 Gm Powder PO SCH (08:57)
[2016-11-28] MEDS: Multivit-Miner-Folic Acid-Iron Tablet PO SCH (08:57)
[2016-11-28] MEDS: Morphine ER 30 mg (MS Contin) Tablet PO SCH (08:59)
[2016-11-28] MEDS ORDERED: TRAM-14 PO (10:05)
[2016-11-28] MEDS ORDERED: MORP30TA PO (10:05)
[2016-11-28] MEDS ORDERED: OXYC-474 PO (10:05)
--- NOTE | 2016-11-28 10:11 | NUR ---
Social Work: Discharge Data: Pt is on day 6 of hospitalization. EMR reviewed. D/C orders are in. ordered HH PT, OT, RN. PIN GAME MACHINE INSPECTOR notified [facility] regarding d/c, faxed F2F to them. PT recommending HH at this time. No further d/c planning needs at this time. PIN GAME MACHINE INSPECTOR will continue to follow if needs arise. Assessment: Pt who is independent at baseline. Plan: Pt will d/c home via POV today with [facility] RN, PT, OT. No further d/c planning needs at this time. PIN GAME MACHINE INSPECTOR will continue to follow if needs arise. BRIONNA Rodriguez
--- NOTE | 2016-11-28 10:12 | PCM.DIMED ---
Discharge Instructions Date of Service November 28, 2016 Dates of Hospitalization November 22, 2016 at 00:14 Discharge Diagnosis Discharge Diagnosis EtOH withdrawal Anion gap metabolic acidosis secondary to lactic acid in the setting of EtOH intoxication RLQ abdominal pain, likely secondary to constipation, present on admission. Improved back pain, likely MSK COPD not on home oxygen CAD status post 2 stents Hypertension Hyperlipidemia TALIB noncompliant with CPAP Depression and anxiety GERD BPH Hx of stroke Chronic right hip pain secondary to OA Diet Discharge Diet: Low fat, Low Sodium Activity Discharge Activity: Home Health Phyical Therapy Call your provider Call your provider for: Fever or Chills, Shortness of breath, Bleeding, Chest pain, Weakness (unilateral) Patient Instructions Patient Instructions Follow up with Dr. Tyson soon I have told you that I am worried about you falling and have strongly suggested that you go to a senior living rehab before going directly home like you have decided to do. Follow-up Provider: [facility] Follow-up with PCP in: 1 week Mayda Flores MD November 28, 2016 10:12
--- NOTE | 2016-11-28 10:22 | NUR ---
Social Work: Continued d/c planning ELEMENTARY SCHOOL SOCIAL WORKER left a voice mail with pt's daughter and son-in-law requesting one of them come to assist pt in getting back to [facility] today. ELEMENTARY SCHOOL SOCIAL WORKER awaiting phone call back. BRIONNA Rodriguez
--- NOTE | 2016-11-28 11:02 | PCM.DC.MED ---
Discharge Summary Date of Service November 28, 2016 Dates of Hospitalization Date of Hospital Admission November 22, 2016 at 00:14 Date of Discharge: November 28, 2016 Providers: Admitting Physician: Skylar Soriano DO Primary Care Physician: Niranjan Nettles MD Attending Physician: Skylar Soriano DO Diagnosis at Time of Discharge Diagnosis at Time of Discharge EtOH withdrawal Anion gap metabolic acidosis secondary to lactic acid in the setting of EtOH intoxication RLQ abdominal pain, likely secondary to constipation, present on admission. Improved back pain, likely MSK COPD not on home oxygen CAD status post 2 stents Hypertension Hyperlipidemia TALIB noncompliant with CPAP Depression and anxiety GERD BPH Hx of stroke Chronic right hip pain secondary to OA Procedures XRay, CTs & MRIs CT ABDOMEN AND PELVIS WITH CONTRAST IMPRESSION: 1. Cause of abdominal pain is not identified. No evidence for acute disease. Dictated by: Niranjan Ochoa M.D. on 11/22/2016 at 7:34 this report corresponds to the findings of the preliminary NSR report. X-RAY CHEST ONE VIEW, PORTABLE IMPRESSION: No acute cardiopulmonary disease process. Dictated by: Nakita Salas MD, PhD on 11/21/2016 at 20:57 ECG 12 Lead ECG Interpretation: Normal sinus rhtyhm. Rate 75. Significant baseline interference. Time: 21:03 Interpreted by: ED physician Brief History Patient is a 76 y/o male with a hx of alcohol abuse, hypertension, CAD, diabetes , and COPD presents to the ED via EMS complaining of nausea and diarrhea. Patient is a poor historian and does not know why he was brought to the ED from his long care facility. He says he has been sick for "a long time". He can not give a clear answer as to the onset or duration of his symptoms. Associated sx include abdominal pain, vomiting, diarrhea, chills, SOB. The abdominal pain is located on his left lower quadrant, patient characterizes it as deep within intensity being moderate to severe. Patient also reports of feeling constipated and wanting to have have BM, but continues to have ongoing diarrhea, which patient cannot specify duration of. He denies fever or cough. Patient's states he had similar symptoms when he drank whiskey, but cannot remember how long ago this was. Ptates he drank a fifth of whiskey last Tuesday and attributes his symptoms to this. Patient states he continues to drink 8-9 beers a day, and is not ready to quit. In the ED vitals with temperature 36.5, pulse 75, blood pressure 155/57, oxygen at 95% on room air. Labs significant for potassium 3.4, lactic acid 4.0, alkaline phosphatase 184, BNP 1326. EtOH of 147. Troponin 1 negative, lipase normal at 20. CXR showed no acute cardiopulmonary process. CT abdomen showed "No signs of appendicitis, diverticulitis, or mechanical small bowel obstruction." Patient admitted for further workup and management. Patient was diagnosed with community -acquired pneumonia based on physical exam findings, started on ceftriaxone and azithromycin in ED. Hospital Course Keenan Atwood is a 76 year old man with past medical history significant for alcohol abuse, hypertension, CAD, diabetes, and COPD presents to the ED via EMS complaining of nausea. Currently under treatment for EtOH withdrawal and abdominal pain. Hospital day #4 EtOH withdrawal, not present on admission, active. -this has resolved, no s/s of DTs, avoid long-acting benzodiazepine -Chemical dependency consultation unavailable Anion gap metabolic acidosis secondary to lactic acid in the setting of EtOH intoxication, present on admission. Resolved. - Lactic acid normalized, low potassium of 3.4 treated with IVF. RLQ abdominal pain, likely secondary to constipation, present on admission. Improved - CT not revealing of significant pathology. - Patient given mag citrate with good results - Stool PCR negative. Stopped PO vancomycin already. Possible left lower lobe pneumonia, ruled out - Official read of CXR negative for PNA back pain, likely MSK, Toradol was ineffective so resumed home doses of opiates. Chronic conditions: COPD not on home oxygen - Continue home medication albuterol HFA CAD status post 2 stents - on telemetry Hypertension - continue home dose lisinopril and furosemide Hyperlipidemia - continue home dose atorvastatin TALIB noncompliant with CPAP Depression and anxiety - continue home dose fluoxetine and mirtazapine, lorazepam when necessary GERD - continue home dose omeprazole BPH - continue home dose tamsulosin Hx of stroke - continue home dose aspirin Chronic right hip pain secondary to OA - Oxycodone Disposition: I agree with physical therapy recommendation of group home facility for rehabilitation back to his baseline wheelchair use. The patient refuses that recommendation and insists that he will return home to his independent room at the assisted living facility. He is at high risk for fall and return. He is informed of this and accepts that risk. Exam Vital Signs (Last) Date Time Temp Pulse Resp B/P Pulse Ox O2 Delivery O2 Flow Rate FiO2 11/28/16 09:52 36.6 63 18 106/48 94 Room Air 11/27/16 13:00 1.00 Exam Heart is regular rate and rhythm without murmur Lungs are clear to auscultation bilaterally Extremities have no ankle edema Abdomen soft, bowel cells positive, nontender, no organomegaly The patient looks very weak and unable to reliably mobilize himself, although he tells me that he is at his baseline. He says he is doing well with transfers from chair to commode to bed and that is his baseline. He is sure that his $35,000 power chair will be all he needs. Test 11/21/16 20:00 11/22/16 03:40 11/22/16 10:10 11/22/16 11:00 Troponin T < 0.010ug/L (0.0-0.011) Pro-B-Type Natriuretic Peptide 1326pg/mL (0-486) Lipase 20U/L (13-60) Alcohols 147mg/dL (0-10) Lactate Dehydrogenase 233U/L (100-190) Ketones Small (Negative) Urine Color Straw (YELLOW) Urine Appearance Hazy (CLEAR,HAZY) Urine pH 6.0 (5.0-8.0) Urine Specific [place] 1.010 (1.003-1.035) Urine Protein Negativemg/dL (NEG,TRACE) Urine Glucose (UA) Negativemg/dL (NEGATIVE) Urine Ketones 80mg/dL (NEGATIVE) Urine Occult Blood Trace (NEGATIVE) Urine Nitrite Negative (NEGATIVE) Urine Bilirubin Negative (NEGATIVE) Urine Urobilinogen Normalmg/dL (NORMAL) Urine Leukocyte Esterase Negative (NEGATIVE) Urine RBC 0-2/hpf (0-2) Urine WBC 0-5/hpf (0-5) Urine Epithelial Cells Occasional/hpf (NONE-MOD) Urine Crystals None seen (NONE SEEN) Urine Bacteria None/hpf (NONE-FEW) Urine Hyaline Casts None/lpf (NONE) Urine Granular Casts None seen (NONE SEEN) Urine Waxy Casts None seen (NONE SEEN) Urine Red Blood Cell Casts None seen (NONE SEEN) Urine White Blood Cell Casts None seen (NONE SEEN) Urine Mucus None seen (None Seen) Urine Trichomonas None seen (NONE SEEN) Urine Yeast None (NONE SEEN) Urinalysis Comment None Urine Culture Reflexed Not indicated Lactic Acid Level 1.2mmol/L (0.4-2.0) Test 11/23/16 07:18 11/26/16 06:00 11/27/16 08:10 Procalcitonin 0.05ng/mL (0.00-0.08) White Blood Count 14.9th/mm3 (3.8-10.1) Red Blood Count 3.77mil/mm3 (4.40-5.80) Hemoglobin 12.8g/dL (13.8-17.2) Hematocrit 36.6% (41.0-50.0) Mean Corpuscular Volume 97.1fL (81-100) Mean Corpuscular Hemoglobin 34.0pg (27.0-35.0) Mean Corpuscular Hemoglobin Concent 35.0% (32.0-37.0) Red Cell Distribution Width 13.3% (12.3-15.4) Platelet Count 211bil/L (150-400) Neutrophils (%) (Auto) 71.2% (40-74) Lymphocytes (%) (Auto) 15.9% (14-46) Monocytes (%) (Auto) 8.3% (4-12) Eosinophils (%) (Auto) 3.7% (0-5) Basophils (%) (Auto) 0.1% (0-3) Phosphorus Level 4.0mg/dL (2.5-4.9) Magnesium Level 1.6mg/dL (1.6-2.6) Total Bilirubin 0.4mg/dL (0.0-1.2) Aspartate Amino Transf (AST/SGOT) 30U/L (0-50) Alanine Aminotransferase (ALT/SGPT) 29U/L (0-44) Alkaline Phosphatase 117U/L (25-160) Total Protein 5.7g/dL (6.4-8.4) Albumin 3.3g/dL (3.4-5.0) Sodium Level 138mEq/L (134-144) Potassium Level 4.0mEq/L (3.5-5.2) Chloride Level 100mEq/L (97-108) Carbon Dioxide Level 23mmol/L (18-29) Blood Urea Nitrogen 12mg/dL (8-27) Creatinine 0.64mg/dL (0.76-1.27) Estimat Glomerular Filtration Rate 129mL/min (>59) Glucose Level 106mg/dL (60-99) Calcium Level 8.7mg/dL (8.5-10.1) Discharge Medications Discharge Medications Albuterol HFA (Proair HFA) 8.5 Gm Hfa.aer.ad 2 PUFFS INHALATION Q4H Prescribed by: TOYIN MCKEON MD Atorvastatin Calcium (Atorvastatin Calcium) 80 Mg Tablet 80 MG PO HS (Reported) Ferrous Sulfate (Ferrous Sulfate) 324 Mg Tablet.dr 324 MG PO TIDWM (Reported) Finasteride (Finasteride) 5 Mg Tablet 5 MG PO DAILY (Reported) Fluoxetine (Fluoxetine) 40 Mg Capsule 40 MG PO DAILY (Reported) Furosemide (Furosemide) 20 Mg Tab 60 MG PO DAILY (Reported) Gabapentin (Gabapentin) 300 Mg Capsule 600 MG PO TID (Reported) Lisinopril (Lisinopril) 10 Mg Tablet 10 MG PO DAILY (Reported) Mirtazapine (Mirtazapine) 30 Mg Tablet 30 MG PO HS (Reported) Morphine Sulfate (Morphine Sulfate) 30 Mg Tablet 30 MG PO TID Prescribed by: EMERALD FLORES MD Omeprazole (Omeprazole) 20 Mg Capsule.dr 20 MG PO BIDWM (Reported) Polyethylene Glycol 3350 (Polyethylene Glycol 3350) 17 Gm Powd.pack 17 GM PO DAILY (Reported) Tamsulosin (Flomax) 0.4 Mg Capsule 0.4 MG PO HS (Reported) As needed Docusate Sodium (Docusate Sodium) 250 Mg Capsule 250 MG PO BID PRN PRN For Constipation (Reported) Ondansetron (Ondansetron) 8 Mg Tablet 8 MG PO Q8HR PRN PRN For Nausea (Reported ) Oxycodone (Roxicodone) 5 Mg Tablet 10 MG PO Q6H PRN PRN For Pain Prescribed by: EMERALD FLORES MD Psyllium Husk (Psyllium Husk) 1,000 Gm Powder 1,000 GM PO DAILY PRN PRN For Constipation (Reported) Tramadol (Ultram) 50 Mg Tablet 100 MG PO Q6H PRN PRN For Mild Pain Prescribed by: EMERALD FLORES MD Followup Plan Discharge Diet: Low fat, Low Sodium Discharge Activity: Home Health Phyical Therapy Patient Instructions Follow up with Dr. Tyson soon I have told you that I am worried about you falling and have strongly suggested that you go to a longterm rehab before going directly home like you have decided to do. Follow-up Provider: [facility] Follow-up with PCP in: 1 week Time spent 40 minutes Mayda Flores MD November 28, 2016 10:13
--- NOTE | 2016-11-28 13:18 | NUR ---
Discharge Received orders for discharge. patient's ride is here (Son in law) to pear picker patient. Reviewed discharge paper work with patient and family, new prescriptions, discharge instructions per hospitalist, and written care notes provided, understood and signed discharge paper work. IV to right hand discontinued with out difficulty. Denies pain or discomfort before discharge. patient left unit approx 1322 via wheel chair accompained by nursing staff.
[2016-11-29] MEDS ORDERED: MORP30TA PO (17:26)
[2016-11-29] MEDS ORDERED: LISI10TA PO (17:26)
[2016-11-29] MEDS ORDERED: DOCU250C2 PO (17:26)
[2016-11-29] MEDS ORDERED: ALBU8.5H2 INHALATION (17:26)
[2016-11-29] MEDS ORDERED: FLUO40CA PO (17:26)
[2016-11-29] MEDS ORDERED: OMEP20CA11 PO (17:26)
[2016-11-29] MEDS ORDERED: PSYL1000 PO (17:26)
[2016-11-29] MEDS ORDERED: MIRT30TA6 PO (17:26)
[2016-11-29] MEDS ORDERED: FERR-83 PO (17:26)
[2016-11-29] MEDS ORDERED: TAMS0.4C29 PO (17:26)
[2016-11-29] MEDS ORDERED: OXYC-474 PO (17:26)
[2016-11-29] MEDS ORDERED: ONDA-54 PO (17:26)
[2016-11-29] MEDS ORDERED: FINA5TAB9 PO (17:26)
[2016-11-29] MEDS ORDERED: POLY17PO6 PO (17:26)
[2016-11-29] MEDS ORDERED: GABA600T2 PO (17:26)
[2016-11-29] MEDS ORDERED: FUR20 PO (17:26)
[2016-11-29] MEDS ORDERED: ATOR80TA PO (17:26)
[2016-11-29] MEDS ORDERED: GABA-502 PO (17:28)
== END 2016-11-28 13:20 | disposition home health service (06) | DRG 897 ==
LOC: EDBD 20:06 → SED 20:06 → OSC 11-22 00:14 → OBSVTOIN 11-22 00:14 → PCC 11-22 02:58 → MPC 11-24 22:42
PROVIDERS: ADMIT Internal Medicine; ATTEND Internal Medicine
DX: F10.229 Alcohol dependence with intoxication, unspecified (principal); E87.2 Acidosis; F10.239 Alcohol dependence with withdrawal, unspecified; K59.00 Constipation, unspecified; Y90.6 Blood alcohol level of 120-199 mg/100 ml; I10 Essential (primary) hypertension; E78.5 Hyperlipidemia, unspecified; F41.8 Other specified anxiety disorders; J44.9 Chronic obstructive pulmonary disease, unspecified; F17.210 Nicotine dependence, cigarettes, uncomplicated; M16.11 Unilateral primary osteoarthritis, right hip; I25.10 Atherosclerotic heart disease of native coronary artery without angina pectoris; R10.31 Right lower quadrant pain; G47.33 Obstructive sleep apnea (adult) (pediatric); K21.9 Gastro-esophageal reflux disease without esophagitis; N40.0 Benign prostatic hyperplasia without lower urinary tract symptoms; M54.5 Low back pain; E11.9 Type 2 diabetes mellitus without complications; Z95.5 Presence of coronary angioplasty implant and graft; Z86.73 Personal history of transient ischemic attack (TIA), and cerebral infarction without residual deficits; Z91.19 Patient's noncompliance with other medical treatment and regimen

== ENCOUNTER 2016-11-29 11:20 | Inpatient (IN) | payer MEDICARE, OTHER ==
[~2016-11-29] VITALS: Ht 175.3 cm; Wt 82.8 kg
[2016-11-29] VITALS (9 sets, daily range): BP systolic 93–140; BP diastolic 49–65; PULSE 51–68; RESP 13–18; O2SAT 89–100
[~2016-11-29 11:20] MED LIST changes: +DOCU250C2 PO; +FERR324T2 PO; +FINA5TAB9 PO; +FLUO40CA PO; +FUR20 PO; +MORP30TA PO; +ONDA-54 PO; +OXYC-474 PO; +POLY17PO2 PO; +PSYL1000 PO; +TRAM-14 PO
[2016-11-29 12:36] LABS: Mean Corpuscular Hemoglobin 33.6 pg (27.0-35.0); Mean Corpuscular Volume 102.2 fL (81-100)
--- NOTE | 2016-11-29 12:45 | ED.REPORT ---
HPI-General Illness Date of Service November 29, 2016 ED Provider: Ja Marlow PA-C Michi is a 76-year-old male presented with a chief complaint of bilateral hip pain. This patient was recently admitted to this facility for abdominal pain and EtOH withdrawal, discharged yesterday. At that time it was suggested he should go to a nursing facility, but he felt he could return to home. He is an independent resident at [facility]. Patient states that nothing is changed in the last 24 hours with his health, but he has realized he is unable to transfer from his wheelchair onto the toilet. Denies falls, however this patient is a difficult historian and was unable to initially tell me why he was admitted to the hospital. This appears to be his baseline as it is as mentioned in previous notes. History of alcohol abuse, reports drinking 8-9 beers a day. Reports drinking one beer today. Complains of low back, hip and knee pain. Denies loss of bowel/bladder control, saddle anesthesia, fever or other complaints. Nursing Notes Stated Complaint: GLF Chief Complaint: Extremity Trauma Nursing Notes Reviewed: Yes Allergies: Coded Allergies: hydrocodone bitartrate (Verified Allergy, Intermediate, Rash,Itching,, ) Scheduled Atorvastatin (Lipitor) 80 Mg Tablet 80 MG PO HS Ferrous Sulfate (Ferrous Sulfate) 325 Mg Tablet 325 MG PO TIDWM Finasteride (Finasteride) 5 Mg Tablet 5 MG PO QAM Fluoxetine (Fluoxetine) 40 Mg Capsule 40 MG PO QAM Furosemide (Furosemide) 20 Mg Tab 60 MG PO QAM Gabapentin (Gabapentin) 300 Mg Capsule 600 MG PO TID Lisinopril (Lisinopril) 10 Mg Tablet 10 MG PO QAM Mirtazapine (Mirtazapine) 30 Mg Tablet 30 MG PO HS Morphine Sulfate (Morphine Sulfate) 30 Mg Tablet 30 MG PO TID Omeprazole (Omeprazole) 20 Mg Capsule.dr 20 MG PO BIDAC Polyethylene Glycol 3350 (Miralax) 17 Gm Powd.pack 17 GM PO QAM Tamsulosin ER (Tamsulosin ER) 0.4 Mg Cap.er.24h 0.4 MG PO HS Scheduled PRN Albuterol HFA (Proair HFA) 8.5 Gm Hfa.aer.ad 2 PUFFS INHALATION Q4H PRN PRN For Shortness of Breath Docusate Sodium (Docusate Sodium) 250 Mg Capsule 250 MG PO BID PRN PRN For Constipation Ondansetron (Ondansetron) 8 Mg Tablet 8 MG PO Q8H PRN PRN For Nausea/Vomiting Oxycodone (Roxicodone) 5 Mg Tablet 10 MG PO Q6H PRN PRN For Pain Psyllium Husk (Psyllium Husk) 1,000 Gm Powder 1 TBS PO DAILY PRN PRN For Constipation General Time Seen by MD: 11:41 Chief Complaint Other (hip pain.) Past Medical History Past Medical History 1. longstanding history of alcoholism, who has had approximately seven admissions since January 2012, for complications of alcoholism, including acute alcohol withdrawal, ground level falls, traumatic injury to his shoulder requiring surgery, broken ribs 2. Polysubstance abuse. 3. Hypertension. 4. Hyperlipidemia 5. Depression and anxiety. 6. COPD not on home oxygen, current every day smoker 7. Coronary artery disease s/p 2 stents 8. History of stroke without residual deficits 9. Obstructive sleep apnea (the patient took himself off CPAP many years ago). 10. Borderline diabetes. 11. History of MRSA pneumonia. 12. Recently patient with ongoing right hip pain, suspect secondary to osteoarthritis, patient scheduled for followup at [place] for steroid injection, he has been prescribed tramadol and oxycodone by [facility] Reports: COPD, Coronary artery disease, Diabetes mellitus, Hypertension, Stroke Past Surgical History He has had multiple coronary stents, pinning of his right shoulder, and facial cancer removed years ago. Smoking History Former Smoker Social History Alcohol Use: >5 per day Other Social History: Good social support Ambulatory Status Walker Review of Systems General: Denies fever, chills, malaise. HEENT: Denies congestion, headache, sore throat. Respiratory: Denies dyspnea, cough, shortness of breath, wheezing. Cardiovascular: Denies chest pain, palpitations. Gastrointestinal: Admits diarrhea, denies vomiting, abdominal pain Genitourinary: Denies frequency, urgency, dysuria, hematuria. Otherwise as noted in HPI. Physical Exam General: Well appearing, well developed, well nourished, mild distress. Disheveled and appears to be in pain. Head: Atraumatic, normocephalic. Eyes: No scleral icterus or injection. No discharge. Vision grossly intact. ENT: Voice clear, hearing grossly intact. Respiratory: Regular rate and rhythm. Breath sounds present, clear to auscultation and equal bilaterally. No respiratory distress. No increased work of breathing, speaks in complete sentences. Cardiovascular: Regular rate and rhythm, without murmur, gallop or rub. No pedal edema. Gastrointestinal: Protuberant abdomen non-tender without guarding or rebound. Bowel sounds normoactive. Skin: Warm and dry. Blanching red rash with saline lesions noted the gluteal cleft and lower back. Some skin sloughing. Legs: Bilateral stasis dermatitis, cool feet without appreciable pulses. Neurological: Grossly nonfocal. Psychological: Alert and oriented. Speech appropriate, linear and logical. Behavior appropriate. Vital Signs Vital Signs Date Time Temp Pulse Resp B/P Pulse Ox O2 Delivery O2 Flow Rate FiO2 11/29/16 16:05 60 18 93/49 96 Room Air 11/29/16 14:20 59 13 103/60 97 Room Air 11/29/16 11:22 36.1 66 16 109/65 97 Room Air Initial VS: Vital signs normal Interpretation & Diagnostics Lab Results Interpretation Result Diagram: 11/29/16 1917 11/29/16 1220 Test 11/29/16 12:20 Sodium Level 131mEq/L (134-144) Potassium Level 4.2mEq/L (3.5-5.2) Chloride Level 94mEq/L (97-108) Carbon Dioxide Level 23mmol/L (18-29) Blood Urea Nitrogen 20mg/dL (8-27) Creatinine 1.40mg/dL (0.76-1.27) Estimat Glomerular Filtration Rate 52mL/min (>59) Glucose Level 91mg/dL (60-99) Calcium Level 8.7mg/dL (8.5-10.1) Total Bilirubin 0.3mg/dL (0.0-1.2) Aspartate Amino Transf (AST/SGOT) 25U/L (0-50) Alanine Aminotransferase (ALT/SGPT) 24U/L (0-44) Alkaline Phosphatase 124U/L (25-160) Total Protein 6.1g/dL (6.4-8.4) Albumin 3.2g/dL (3.4-5.0) Alcohols < 10mg/dL (0-10) Re-Eval/Medical Decision Med Decision/Clinical Course 76-year-old male discharged from this facility after admission for alcohol withdrawal and abdominal pain returns seeking placed to the nursing facility. Patient was advised she should be discharged to nursing facility but chose to return to his independent living situation at [facility]. He states he is unable to transfer from his wheelchair to the commode and complains of lower back, bilateral hip and knee pain. He complains of constipation, which she believes is secondary to opiates. Denies saddle anesthesia, bowel/bladder dysfunction. Physical examination is generally benign with bilateral cool feet without appreciable pulses noted. Apparent candidal rash at gluteal cleft with some maceration and skin sloughing. Lungs are clear, abdomen nontender. Discussed the case with BRIONNA Hammond who facilitates admission to [facility]. Patient is prepared to be discharged to [facility] with prescriptions for medications, however it is noted that he is becoming more somnolent with falling blood pressure. Dr. Nayak reviews his labs and notes worsening kidney function. Advises admission to the hospital. Discussed the case with hospitalist who accepted admission. Consultation : Referral / Consult Name: Briana Marcelino MD Consulted With: Hospitalist Call Returned at: 16:50 Director Of Federal Sales: Accepts admit Discharge & Departure Primary Impression: SHAWN (acute kidney injury) Additional Impressions: Hypotension Hypotension type: unspecified hypotension type Qualified Code: I95.9 - Hypotension, unspecified Somnolence Disposition: ADMITTED TO HOSPITAL Discharge Condition All VS Reviewed: Yes Condition: Stable Referrals: Niranjan Nettles MD (PCP) EDSupervising Provider for APC: Ishaan Nayak MD copies to: Niranjan Nettles MD, Seth PA-C November 29, 2016 12:44 Laterality: bilateral Qualified Code: M25.551 - Pain in right hip COPD (chronic obstructive pulmonary disease) COPD type: unspecified COPD Qualified Code: J44.9 - Chronic obstructive pulmonary disease, unspecified Candidal dermatitis Depression Depression Type: unspecified Qualified Code: F32.9 - Major depressive disorder, single episode, unspecified GERD (gastroesophageal reflux disease) Esophagitis presence: esophagitis presence not specified Qualified Code: K21.9 - Gastro-esophageal reflux disease without esophagitis TALIB (obstructive sleep apnea) Hypertension Hyperlipidemia BPH (benign prostatic hyperplasia) Disposition: Home Discharge Condition All VS Reviewed: Yes Condition: Stable Additional Instructions: Discharged to [facility] and Dr. Bejarano for continuing rehabilitation with PT, OT and correction needs. Prescription provided for oxycodone and morphine sulfate. Referrals: Niranjan Nettles MD (PCP) EDSupervising Provider for APC: Ishaan Nayak MD copies to: Niranjan Nettles MD, Seth PA-C November 29, 2016 12:44
[2016-11-29] MEDS ORDERED: OMEP20CA11 PO (17:26)
[2016-11-29] MEDS ORDERED: MORP30TA PO (17:26)
[2016-11-29] MEDS ORDERED: FLUO40CA PO (17:26)
[2016-11-29] MEDS ORDERED: GABA600T2 PO (17:26)
[2016-11-29] MEDS ORDERED: FERR-83 PO (17:26)
[2016-11-29] MEDS ORDERED: FINA5TAB9 PO (17:26)
[2016-11-29] MEDS ORDERED: MIRT30TA6 PO (17:26)
[2016-11-29] MEDS ORDERED: ALBU8.5H2 INHALATION (17:26)
[2016-11-29] MEDS ORDERED: FUR20 PO (17:26)
[2016-11-29] MEDS ORDERED: ATOR80TA PO (17:26)
[2016-11-29] MEDS ORDERED: DOCU250C2 PO (17:26)
[2016-11-29] MEDS ORDERED: OXYC-474 PO (17:26)
[2016-11-29] MEDS ORDERED: PSYL1000 PO (17:26)
[2016-11-29] MEDS ORDERED: LISI10TA PO (17:26)
[2016-11-29] MEDS ORDERED: ONDA-54 PO (17:26)
[2016-11-29] MEDS ORDERED: POLY17PO6 PO (17:26)
[2016-11-29] MEDS ORDERED: TAMS0.4C29 PO (17:26)
[2016-11-29] MEDS ORDERED: GABA-502 PO (17:28)
[2016-11-29] MEDS ORDERED: Polyethylene Glycol (PEG) 17 Gm Powder PO PRN (17:35)
[2016-11-29] MEDS ORDERED: Alum-Mag Hydrox-Simeth 30 mL Suspension PO PRN (17:35)
[2016-11-29] MEDS ORDERED: Ondansetron 2 mg/mL 2 mL Inj IVPUSH PRN (17:35)
--- NOTE | 2016-11-29 17:50 | PCM.HPMED ---
Subjective Date of Service November 29, 2016 Primary Provider: Admitting Physician: Briana Marcelino MD Primary Care Physician: Niranjan Nettles MD Attending Physician: Briana Marcelino MD Chief Complaint: Weakness History of Present Illness: Patient was just hospitalized here November 22- with abdominal pain, nausea and diarrhea which improved and was felt to be related to constipation. It was recommended that he go to SNF for strengthening but he declined and return to his assisted living facility. Apparently there he found that he was weak and not able to transfer and return to the emergency department for SNF placement. However they found him to have some hypotension, somnolence, and worsened renal function and felt he needed admission. Review of Systems: Perhaps some mild burning with urination, otherwise Review of systems is unremarkable except as above. He does have some chronic cough which has not changed recently. Allergies Coded Allergies: hydrocodone bitartrate (Verified Allergy, Intermediate, Rash,Itching,, ) Home Medications Discharge Medications at time of discharge yesterday: Albuterol HFA (Proair HFA) 8.5 Gm Hfa.aer.ad 2 PUFFS INHALATION Q4H Atorvastatin Calcium (Atorvastatin Calcium) 80 Mg Tablet 80 MG PO HS (Reported) Ferrous Sulfate (Ferrous Sulfate) 324 Mg Tablet.dr 324 MG PO TIDWM (Reported) Finasteride (Finasteride) 5 Mg Tablet 5 MG PO DAILY (Reported) Fluoxetine (Fluoxetine) 40 Mg Capsule 40 MG PO DAILY (Reported) Furosemide (Furosemide) 20 Mg Tab 60 MG PO DAILY (Reported) Gabapentin (Gabapentin) 300 Mg Capsule 600 MG PO TID (Reported) Lisinopril (Lisinopril) 10 Mg Tablet 10 MG PO DAILY (Reported) Mirtazapine (Mirtazapine) 30 Mg Tablet 30 MG PO HS (Reported) Morphine Sulfate (Morphine Sulfate) 30 Mg Tablet 30 MG PO TID Omeprazole (Omeprazole) 20 Mg Capsule.dr 20 MG PO BIDWM (Reported) Polyethylene Glycol 3350 (Polyethylene Glycol 3350) 17 Gm Powd.pack 17 GM PO DAILY (Reported) Tamsulosin (Flomax) 0.4 Mg Capsule 0.4 MG PO HS (Reported) Docusate Sodium (Docusate Sodium) 250 Mg Capsule 250 MG PO BID PRN PRN For Constipation (Reported) Ondansetron (Ondansetron) 8 Mg Tablet 8 MG PO Q8HR PRN PRN For Nausea (Reported ) Oxycodone (Roxicodone) 5 Mg Tablet 10 MG PO Q6H PRN PRN For Pain Psyllium Husk (Psyllium Husk) 1,000 Gm Powder 1,000 GM PO DAILY PRN PRN For Constipation (Reported) Tramadol (Ultram) 50 Mg Tablet 100 MG PO Q6H PRN PRN For Mild Pain PMH Recent admission (November 22) with: RLQ abdominal pain, likely secondary to constipation, present on admission. Improved Anion gap metabolic acidosis secondary to lactic acid in the setting of EtOH intoxication Alcohol withdrawal back pain, likely MSK PMH: Longstanding history of alcoholism, who has had approximately seven admissions since January 2012, for complications of alcoholism, including acute alcohol withdrawal, ground level falls, traumatic injury to his shoulder requiring surgery, broken ribs Polysubstance abuse. Hypertension. Hyperlipidemia Depression and anxiety. COPD not on home oxygen, current every day smoker Coronary artery disease s/p 2 stents History of stroke without residual deficits Obstructive sleep apnea (the patient took himself off CPAP many years ago). Borderline diabetes. History of MRSA pneumonia. Recently patient with ongoing right hip pain, suspect secondary to osteoarthritis, patient scheduled for followup at [place] for steroid injection, he has been prescribed tramadol and oxycodone by CT Surgical History Coronary stents Right shoulder pinning Facial cancer removed Family History Father related to heart disease Social History Hx Alcohol Use: Yes (drinks 8-9 beers a day) Hx Substance Use: Yes (marijuana daily) Hx Tobacco Use: Yes Smoking Status: Former Smoker Living Arrangement: Assisted Living Exam Vital Signs Vital Sign - Last Date Time Temp Pulse Resp B/P Pulse Ox O2 Delivery O2 Flow Rate FiO2 11/29/16 17:22 51 100/57 89 Room Air 11/29/16 16:05 18 11/29/16 11:22 36.1 Exam General: Alert and oriented to month and year of OA thought it was breakfast time instead of dinnertime, no acute distress HEENT: Unremarkable Neck: No JVD Heart: Regular Lungs: Somewhat decreased breath sounds throughout with mild scattered upper airway noise and faint expiratory wheeze Abdomen: Soft, non-tender, normal bowel tones Buttocks: erythema in the fold between the buttocks and maceration over the sacrum Extremities: Trace pedal edema with fine wrinkling of the skin of the ankles. Both legs with some erythema and skin changes that appear to be chronic stasis changes. He feels his legs are better than usual. Neuro: Hand laborer electroplating strong and equal, able to raise both legs off the bed against resistance equally Lab and Diagnostics Result Diagram: 11/29/16 1220 11/29/16 1220 Assessment & Plan # Hyponatremia, sodium 131, acute, had been 138 2 days ago, etiology unclear - Initially we will treat with normal saline IV fluids - Check TSH # Anemia, new, hemoglobin is 10.9 and was 12.8 yesterday although had been 11.0 in October, consider GI bleed especially with alcoholism and recent abdominal pain - Guaiac stool although this was negative during his recent stay - Initially Protonix IV - Recheck hemoglobin this evening and then again in the morning # Hypotension of undetermined etiology, with new anemia consider GI bleed as above, also consider infection - IV fluid and follow hemoglobin as above - Obtain urinalysis, blood cultures, chest x-ray - Hold Lasix, lisinopril, and Flomax # Acute kidney injury, etiology undetermined, possibly related to hypotension, creatinine is 1.4 and had been 0.64 2 days ago - IV fluid as above and follow - As above Hold Lasix, lisinopril, and Flomax # Erythema with some rash like appearance between the buttocks, possible louis, will try some Lotrimin # Alcoholism - He is not interested in quitting alcohol but most likely will have withdrawal symptoms if hospital stay is prolonged so detox protocol is ordered Briana Marcelino MD November 29, 2016 17:49
--- NOTE | 2016-11-29 18:11 | NUR ---
Admission Pt arrived on [facility] to rm 3028, appears to be sleeping upon arrival to the unit, however does rouse to voice. Alert to self. IV SL. Pt unable to transfer self from rhadley to bed. Pt slide over by staff, oriana dominguez MD at bedside. Will continue to monitor.
--- NOTE | 2016-11-29 18:34 | DRSVH ---
PROCEDURE: X-RAY CHEST ONE VIEW, PORTABLE ([id number]) INDICATIONS: hypotension,RULE OUT infection TECHNIQUE: One view of the chest was acquired. COMPARISON: [facility], CR, XR CHEST 1VW (PORTABLE), 11/21/2016, 20:37. FINDINGS: Surgical changes and devices: None. Lungs and pleura: No pleural effusions or pneumothorax. Mild patchy right basilar airspace opacity. Mediastinum: Mediastinal contours appear normal. Heart size is normal. Bones and chest wall: No change in right rib fractures.No suspicious bony lesions. Overlying soft t issues appear unremarkable. IMPRESSION: 1. Mild right basilar atelectasis versus pneumonia. 2. No change in right rib fractures. Dictated by: Carlos Enrique Vyas M.D. on 11/29/2016 at 18:31 Approved by: Carlos Enrique Vyas M.D. on 11/29/2016 at 18:32
[2016-11-29] MEDS: 0.9% Sodium Chloride 1,000 ML IV SCH (19:14)
[2016-11-29 19:20] LABS: Mean Corpuscular Hemoglobin 33.8 pg (27.0-35.0); Mean Corpuscular Volume 102.5 fL (81-100)
[2016-11-29] MEDS ORDERED: Albuterol 2.5 mg/3 mL Inhalation Solution NEB PRN (20:00)
[2016-11-30] VITALS (9 sets, daily range): BP systolic 98–126; BP diastolic 51–69; PULSE 60–76; RESP 16–18; O2SAT 92–98
[2016-11-30] MEDS: 0.9% Sodium Chloride 1,000 ML IV SCH ×2 (03:27→14:33)
--- NOTE | 2016-11-30 05:27 | NUR ---
Skin/Pain: Pt noted to have red rash with open areas on niya/buttock area; medication being applied and pt being turned Q2. Pt c/o back pain off/on throughout the night, medication administered x2. Pt requesting to sit up, unsafe to sit in regular chair or at side of bed; offered pt reclining chair, pt accepting and thankful; will try chair to relieve some discomfort. P500 bed ordered, will change out when arrives. Pt pleasant and cooperative with care. Addendum: 11/30/16 at 0644 by GRACIELA RAGSDALE RN P500 placed in pt room; pt remains in reclining chair at this time, states his pain is a little better. Communication sent to MD to order Wound Care consult; pt informed RN that he spends most of his time sitting in his WC. RN will pass to dayshift RN to complete a full skin check as nothing was documented prior to NOC RN arriving.
[2016-11-30 05:45] LABS: Mean Corpuscular Hemoglobin 33.4 pg (27.0-35.0)
[2016-11-30] MEDS ORDERED: Pantoprazole 4 mg/mL 10 mL Inj IVPUSH SCH (07:30)
[2016-11-30] MEDS: Pantoprazole 20 mg ER24 Tablet PO SCH ×2 (07:57→16:30)
[2016-11-30] MEDS: Multivit-Miner-Folic Acid-Iron Tablet PO SCH (08:00)
[2016-11-30] MEDS: Polyethylene Glycol (PEG) 17 Gm Powder PO SCH (08:03)
--- NOTE | 2016-11-30 09:00 | NUR ---
Pain/Buttocks Pt c/o pain with reposition, states it's in R hip/back/buttocks. Skin on buttocks appears angry and red with 1 small, open area on L cheek. Rx fungal cream applied to all red area. q2hr turns implemented, pt very cooperative with cares.
--- NOTE | 2016-11-30 09:26 | PCM.PNMED ---
Subjective Date of Service November 30, 2016 Subjective Overall still feeling somewhat poorly, concerned that he was not able to transfer bed to wheelchair at his assisted living facility. Has had some difficulty urinating but has flighted just now. Denies cough. Exam Vital Signs Vital Sign - Last Date Time Temp Pulse Resp B/P Pulse Ox O2 Delivery O2 Flow Rate FiO2 11/30/16 07:47 69 18 96 Nasal Cannula 1.00 11/30/16 05:43 36.3 11/30/16 04:39 121/56 Intake and Output 11/29/16 11/29/16 11/30/16 Cumulative From/Thru 15:00 23:00 07:00 11/29/16 11:22 - 11/30/16 06:45 Intake Total 2290 ml 2290 ml Balance 2290 ml 2290 ml Intake Oral 300 ml 300 ml IV Total 1040 ml 1040 ml TPN/PPN 950 ml 950 ml Exam General: Alert and oriented, no acute distress Heart: Regular Lungs: Clear Abdomen: Soft, non-tender Extremities: Trace pedal edema and chr stasis changes IVs and Medications Medications Reviewed: Medications were reviewed in detail Lab and Diagnostics Result Diagram: 11/30/16 0510 11/30/16 0510 Assessment & Plan # Anemia, new, hemoglobin was 10.9 on admission and was 12.8 the day prior although had been 11.0 in October, consider GI bleed especially with alcoholism and recent abdominal pain - Hgb 9.9 this am but has been receiving IVF - Guaiac stool although this was negative during his recent stay, not yet done ( no BM yet) - continue Protonix IV - Recheck hemoglobin this afternoon and then again in the morning - AFternoon update: Hgb 9.0, discussed with Dr Molina who doesn't feel EGD or colonoscopy appropriate at this time since he couldn't have a 2-3 unit GI bleed without hematemesis/melena/rectal bleeding. He recommends imaging to rule out retroperitoneal bleed. - repeat Hgb at 2200, call MD if < 8.5 - CT abd/pelvis without contrast (avoid IV contrast due to current SHAWN) # Hypotension of undetermined etiology but now improved after IV fluids, with new anemia consider GI bleed as above, also consider infection - CXR right base atelectasis versus pneumonia but no cough or fever so I have not started him on antibiotics for this - IV normal saline and follow hemoglobin as above - Obtain urinalysis (not yet sent to lab but did urinate this morning), blood cultures NGSF -Continue to hold Lasix and lisinopril but will resume Flomax, especially since having difficulty voiding # Acute kidney injury, etiology undetermined, possibly related to hypotension, creatinine on admission was 1.4 and had been 0.64 two days prior - Slightly improved to 1.2 this morning - Continue IV fluid and follow - As above continue to Hold Lasix and lisinopril # Hyponatremia, resolved (135 this am), etiology unclear - sodium 131 on admit, had been 138 two days prior - treated with normal saline IV fluids - TSH normal # Erythema with some rash like appearance between the buttocks, possible louis, will try some Lotrimin - Obtain wound nurse evaluation # Alcoholism - He is not interested in quitting alcohol but most likely will have withdrawal symptoms if hospital stay is prolonged so detox protocol is ordered [employer]: Venous Foot Pump Briana Marcelino MD November 30, 2016 09:26
--- NOTE | 2016-11-30 10:41 | NUR ---
Gave access and faxed facesheet to [facility], they have accepted the patient with to follow
--- NOTE | 2016-11-30 11:02 | NUR ---
Oxygen Pt now on RA, sating mid-upper 90%. Appears comfortable. States to be on RA at home as well. Will continue to monitor.
--- NOTE | 2016-11-30 11:10 | NUR ---
PASSR faxed, access given, referral made to [facility] Pineda
--- NOTE | 2016-11-30 11:45 | NUR ---
Wound note Wound orders received, patient seen at bedside. Evaluation of patients skin reveals significant yeast at his groin, buttocks and periarea, I think he mostly has this problem secondary to incontinence and is combined with moisture associated dermatitis. He also presents with a stage 2 PI (POA) at his left buttock that is approximately 1 cm in diameter. Do not feel that this PI needs a dressing at this time, rather recommend continued use of clotrimazole ointment and shield wipes to periarea and buttocks BID. Recommend P500 bed and frequent repositioning as patient moves very poorly in bed.
--- NOTE | 2016-11-30 11:57 | NUR ---
Evaluation completed. Please go to "Notes" then click on "Assessments and Notes" (bottom left corner of screen). Then select appropriate discipline tab on top of screen.
[2016-11-30 13:00] LABS: APPEARANCE,URINE CLEAR (CLEAR,HAZY); COLOR,URINE YELLOW (YELLOW); OCCULT BLOOD,URINE NEGATIVE (NEGATIVE); PH,URINE 5.5 (5.0-8.0); UROBILINOGEN,URINE NORMAL (NORMAL)
[2016-11-30] MEDS ORDERED: LORazepam 0.5 mg Tablet PO PRN (15:20)
--- NOTE | 2016-11-30 15:44 | NUR ---
spiritual care:pt request conversational visit. pt wincing in pain throughout visit, repositioning. 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 Pt shared his hopes for "living out his days" in his current apt in which he can use motorized wheelchair to feed fish. no specific spiritual care needs identified, but pt appreciative of visit.
--- NOTE | 2016-11-30 15:48 | NUR ---
Patient is 30% service connected, he also holds MCR A. PCP is Jigar Tyson at [facility], [facility]. community support worker is Katie Henning [phone] fax [phone]
--- NOTE | 2016-11-30 16:35 | NUR ---
Social Work: Initial Assessment D: EMR reviewed. See ED SW notes from 11/29. Pt is a 76 y/o male admitted for hypotension, SHAWN, somulence. SW met with pt at bedside to explain role and wrote phone number on white board. Pt was alert and oriented x3. Pt's insurance is [employer] and Medicare. Pt's PCP is Niranjan Nettles MD. Pt has not LTC insurance. Pt has VA insurance. Pt has no hx of HH or SNF. Pt does not drive. Pt owns a FWW and electric scooter but no other DME. Pt is independent with ADLs. Pt does not drive. Pt lives alone at [facility]. SW received order from MD regarding ETOH/substance abuse consult. SW noted that pt arrived to ED with 0% KATHY. SW spoke with pt regarding ETOH and pt stated he does no longer has a problem and has not had "a whiskey in sometime and has no desire to even think about drinking." Pt declined further services for substance abuse. Pt arrived to ED on 11/29 and ED SW set up stay at [facility]. Pt has been accepted at [facility] with Dr. Bejarano to follow. Per ED SW notes, pt and family agreeable to go to [facility] at discharge. SW confirmed plan with pt at bedside and pt agreeable. Pt would like to return to [facility] after his stay at [facility]. SW will continue to follow for discharge needs. A: Pt for whom a SNF has been deemed medically necessary. P: Pt has been accepted at [facility] with Dr. Bejarano to follow. Pt to discharge to [facility] with family to transport when medically stable. Pt and family agreeable to discharge plan. BRIONNA Pineda Addendum: 11/30/16 at 1652 by CONRADO HILLIARD Amended: Links added. Addendum: 11/30/16 at 1655 by CONRADO PATEL SS Pt requested AGENT TELEGRAPHER at [place]. ROSALINO confirmed placed ROSALINO consult to discuss AGENT TELEGRAPHER with [place]. Pt is 30% service connected and currently has AGENT TELEGRAPHER at [place]. ROSALINO provided pt with his inspector glass or mirror contact information at the [place]. Pt is currently assigned to Katie Henning at [facility]. BRIONNA Pineda
[2016-11-30 16:46] LABS: Mean Corpuscular Hemoglobin 33.2 pg (27.0-35.0); Mean Corpuscular Volume 101.5 fL (81-100)
--- NOTE | 2016-11-30 18:48 | NUR ---
Off unit-CT Pt off unit at this time for a CT. Pt denied pain. IV-SL. Addendum: 11/30/16 at 1902 by GEORGE SEN RN Pt now back. IV reconnected.
--- NOTE | 2016-11-30 19:17 | DRSVH ---
PROCEDURE: CT ABDOMEN AND PELVIS WITHOUT CONTRAST ([id number]) INDICATIONS: Hgb dropping, r/o retroperitoneal hemorrhage TECHNIQUE: Noncontrast 5 mm thick sections acquired from the diaphragms to the symphysis. 5 mm coronal and sagi ttal reformats were then performed. For radiation dose reduction, the following was used: automated exposure control, adjustment of mA and/or kV according to patient size. COMPARISON: None. FINDINGS: Image quality: Excellent. ABDOMEN: Lung bases: Lung bases are clear of acute opacities. Ossified granuloma noted in the left lung base . Mild bronchiectasis noted in the lung bases bilaterally.. Heart size is normal. Solid organs: Liver and spleen are normal in size. Gallbladder is within normal limits. Pancreas i s normal in contours. No adrenal nodules. Kidneys are normal in size, without hydronephrosis or nep hrolithiasis. Peritoneum and bowel: Unenhanced bowel loops demonstrate normal wall thickness and caliber. Numerous diverticuli noted in the colon without evidence of diverticulitis. No free fluid or air. The appendi x is normal. Nodes and vessels: No retroperitoneal or mesenteric adenopathy by size criteria. Aorta and inferior vena cava are normal in caliber. Scattered atherosclerotic calcifications are noted in the abdominal and pelvic vasculature. Miscellaneous: No ventral hernias. PELVIS: Genitourinary: Bladder wall thickness is normal. Miscellaneous: No inguinal hernias or adenopathy. Bones: No suspicious bony lesions. No vertebral body compression fractures. Macro spine. Deformity of the femoral heads noted bilaterally which could be related to severe osteoarthritis or sequela av ascular necrosis. IMPRESSION: 1. No evidence of retroperitoneal hematoma. 2. No free intraperitoneal fluid or air. 3. No dilated loops of bowel. 4. Colonic diverticulosis without evidence of diverticulitis. 5. Atherosclerosis including the visualized right coronary vasculature. Dictated by: Nakita Salas MD, PhD on 11/30/2016 at 19:12 Approved by: Nakita Salas MD, PhD on 11/30/2016 at 19:16
[2016-11-30 22:49] LABS: Mean Corpuscular Hemoglobin 33.3 pg (27.0-35.0); Mean Corpuscular Volume 102.5 fL (81-100)
[2016-11-30 23:01] LABS: INR 1.03 ratio
[2016-12-01 01:52] VITALS: BP 122/57; PULSE 63; RESP 16; O2SAT 94
[2016-12-01] MEDS: 0.9% Sodium Chloride 1,000 ML IV SCH (03:41)
[2016-12-01 04:40] LABS: APPEARANCE,URINE CLEAR (CLEAR,HAZY); COLOR,URINE YELLOW (YELLOW); OCCULT BLOOD,URINE NEGATIVE (NEGATIVE); PH,URINE 5.5 (5.0-8.0); UROBILINOGEN,URINE NORMAL (NORMAL)
--- NOTE | 2016-12-01 05:28 | NUR ---
Pain with urination: Pt appears more comfortable tonight then previous night, not c/o leg/back pain as much. Pt did c/o burning and pain with urination, MD alerted, UA sent to lab. Pt did c/o buttock pain, being turned Q2. Pt slept most of the night, pleasant and cooperative with care.
[2016-12-01 06:10] VITALS: BP 129/53; PULSE 75; RESP 16; O2SAT 94
[2016-12-01 06:17] LABS: Mean Corpuscular Hemoglobin 33.7 pg (27.0-35.0); Mean Corpuscular Volume 103.9 fL (81-100)
--- NOTE | 2016-12-01 07:58 | PCM.DIMED ---
Discharge Instructions Date of Service December 01, 2016 Dates of Hospitalization November 29, 2016 at 17:14 Diet Discharge Diet: No restrictions Activity Discharge Activity: No restrictions Patient Instructions Follow-up with PCP in: 2 weeks Briana Marcelino MD December 01, 2016 07:58
[2016-12-01] MEDS ORDERED: MORP30TA PO (08:06)
[2016-12-01] MEDS ORDERED: Acetaminophen PO (08:06)
[2016-12-01] MEDS ORDERED: Clotrimazole TOPICAL (08:06)
[2016-12-01] MEDS ORDERED: OXYC-474 PO (08:06)
--- NOTE | 2016-12-01 08:14 | PCM.DC.MED ---
Discharge Summary Date of Service December 01, 2016 Dates of Hospitalization Date of Hospital Admission November 29, 2016 at 17:14 Date of Discharge: December 01, 2016 Providers: Admitting Physician: To Waterman MD Primary Care Physician: Niranjan Nettles MD Attending Physician: To Waterman MD Diagnosis at Time of Discharge Diagnosis at Time of Discharge anemia SHAWN Brief History Patient was just hospitalized here November 22- with abdominal pain, nausea and diarrhea which improved and was felt to be related to constipation. It was recommended that he go to SNF for strengthening but he declined and return to his assisted living facility. Apparently there he found that he was weak and not able to transfer and return to the emergency department for SNF placement. However they found him to have some hypotension, somnolence, and worsened renal function and felt he needed admission. Hospital Course # Anemia, new, hemoglobin was 10.9 on admission and had been 12.8 the day prior although had been 11.0 in October, consider GI bleed especially with alcoholism and recent abdominal pain - Hgb gradually decreased to 9.0 but has been receiving IVF, then 9.5 the evening prior to discharge and 9.6 on the morning of discharge - Guaiac stool not done as no stool was obtained but this was negative during his recent stay - Protonix IV during hospital stay, back to [facility] discharge - When hemoglobin Hgb dropped to 9.0 afternoon of November [address] Molina who didn't feel EGD or colonoscopy appropriate at this time since he couldn't have a 2-3 unit GI bleed without hematemesis/melena/rectal bleeding. He recommended imaging to rule out retroperitoneal bleed. This was done and no evidence of bleed was seen # Hypotension of undetermined etiology but now improved after IV fluids, with new anemia considered GI bleed as above, also considered infection - CXR right base atelectasis versus pneumonia but no cough or fever so I have not started him on antibiotics for this during his hospital stay - Sputum obtained today prior to discharge per phone is growing alpha hemolytic strep on the morning of discharge, this could possibly be a strep pneumoniae that will not be known until the following day (later prelim reported as scant normal resp latrice) - Repeated chest x-ray, this time is a 2 view, and no evidence of pneumonia - IV normal saline given and followed hemoglobin as above - Obtain urinalysis twice (?) and no evidence of infection - held Lasix and lisinopril but resumed Flomax, especially since having difficulty voiding - We will not resume these at discharge, especially with AK I, and this can be reassessed as an outpatient. Systolic blood pressure currently in the 120s # Acute kidney injury, etiology undetermined, possibly related to hypotension, creatinine on admission was 1.4 and had been 0.64 two days prior - Slightly improved to 1.2 morning after admission and then 0.85 on the morning of discharge - As noted above treated with IV fluid and Lasix and lisinopril were held # Hyponatremia, resolved (135 morning after admission), etiology unclear - sodium 131 on admit, had been 138 two days prior - treated with normal saline IV fluids - TSH normal # Erythema with some rash like appearance between the buttocks, possible louis, will try some Lotrimin - Obtain wound nurse evaluation # Alcoholism - He is not interested in quitting alcohol, no apparent withdrawal symptoms during this hospital stay but had only been home from the previous hospital stay for 24 hours Exam Vital Signs (Last) Date Time Temp Pulse Resp B/P Pulse Ox O2 Delivery O2 Flow Rate FiO2 12/01/16 06:10 36.8 75 16 129/53 94 Room Air 11/30/16 07:47 1.00 Exam General: Alert, no acute distress Heart: Regular Lungs: Clear anteriorly and laterally Abdomen: Soft, non-tender Extremities: trace pedal edema Test 11/29/16 12:20 11/29/16 19:17 11/29/16 19:40 11/30/16 12:14 Total Bilirubin 0.3mg/dL (0.0-1.2) Aspartate Amino Transf (AST/SGOT) 25U/L (0-50) Alanine Aminotransferase (ALT/SGPT) 24U/L (0-44) Alkaline Phosphatase 124U/L (25-160) Total Protein 6.1g/dL (6.4-8.4) Albumin 3.2g/dL (3.4-5.0) Alcohols < 10mg/dL (0-10) Thyroid Stimulating Hormone (TSH) 3.270uIU/mL (0.450-4.500) Free Thyroxine 1.10ng/dL (0.82-1.77) Hold Hanson Top Tube Received (Received) Urinalysis Comment None Test 11/30/16 22:30 12/01/16 01:57 12/01/16 06:00 Prothrombin Time 11.0sec (8.1-12.5) Prothromb Time International Ratio 1.03ratio Urine Color Yellow (YELLOW) Urine Appearance Clear (CLEAR,HAZY) Urine pH 5.5 (5.0-8.0) Urine Specific [place] 1.006 (1.003-1.035) Urine Protein Negativemg/dL (NEG,TRACE) Urine Glucose (UA) Negativemg/dL (NEGATIVE) Urine Ketones Negativemg/dL (NEGATIVE) Urine Occult Blood Negative (NEGATIVE) Urine Nitrite Negative (NEGATIVE) Urine Bilirubin Negative (NEGATIVE) Urine Urobilinogen Normalmg/dL (NORMAL) Urine Leukocyte Esterase Negative (NEGATIVE) Urine RBC 0-2/hpf (0-2) Urine WBC 0-5/hpf (0-5) Urine Epithelial Cells Occasional/hpf (NONE-MOD) Urine Crystals None seen (NONE SEEN) Urine Bacteria None/hpf (NONE-FEW) Urine Hyaline Casts None/lpf (NONE) Urine Granular Casts None seen (NONE SEEN) Urine Waxy Casts None seen (NONE SEEN) Urine Red Blood Cell Casts None seen (NONE SEEN) Urine White Blood Cell Casts None seen (NONE SEEN) Urine Mucus None seen (None Seen) Urine Trichomonas None seen (NONE SEEN) Urine Yeast None (NONE SEEN) Urine Culture Reflexed Not indicated Hold Urine Received (Received) White Blood Count 8.9th/mm3 (3.8-10.1) Red Blood Count 2.85mil/mm3 (4.40-5.80) Hemoglobin 9.6g/dL (13.8-17.2) Hematocrit 29.6% (41.0-50.0) Mean Corpuscular Volume 103.9fL (81-100) Mean Corpuscular Hemoglobin 33.7pg (27.0-35.0) Mean Corpuscular Hemoglobin Concent 32.4% (32.0-37.0) Red Cell Distribution Width 12.9% (12.3-15.4) Platelet Count 178bil/L (150-400) Sodium Level 140mEq/L (134-144) Potassium Level 4.8mEq/L (3.5-5.2) Chloride Level 106mEq/L (97-108) Carbon Dioxide Level 23mmol/L (18-29) Blood Urea Nitrogen 13mg/dL (8-27) Creatinine 0.85mg/dL (0.76-1.27) Estimat Glomerular Filtration Rate 93mL/min (>59) Glucose Level 89mg/dL (60-99) Calcium Level 8.4mg/dL (8.5-10.1) Discharge Medications Discharge Medications ([Clotrimazole]) 1 APPLIC/0.25 GM CREAM 1 APPLIC TOPICAL BID to erythema on buttocks and folds Prescribed by: TO WATERMAN MD Atorvastatin (Lipitor) 80 Mg Tablet 80 MG PO HS (Reported) Ferrous Sulfate (Ferrous Sulfate) 325 Mg Tablet 325 MG PO TIDWM (Reported) Finasteride (Finasteride) 5 Mg Tablet 5 MG PO QAM (Reported) Fluoxetine (Fluoxetine) 40 Mg Capsule 40 MG PO QAM (Reported) Furosemide (Furosemide) 20 Mg Tab 60 MG PO QAM (Reported) Gabapentin (Gabapentin) 300 Mg Capsule 600 MG PO TID (Reported) Lisinopril (Lisinopril) 10 Mg Tablet 10 MG PO QAM (Reported) Mirtazapine (Mirtazapine) 30 Mg Tablet 30 MG PO HS (Reported) Morphine Sulfate (Morphine Sulfate) 30 Mg Tablet 30 MG PO TID Prescribed by: TO WATERMAN MD Omeprazole (Omeprazole) 20 Mg Capsule.dr 20 MG PO BIDAC (Reported) Polyethylene Glycol 3350 (Miralax) 17 Gm Powd.pack 17 GM PO QAM (Reported) Tamsulosin ER (Tamsulosin ER) 0.4 Mg Cap.er.24h 0.4 MG PO HS (Reported) As needed ([Acetaminophen]) 325 MG TABLET 650 MG PO Q4H PRN PRN For Pain Prescribed by: TO WATERMAN MD Albuterol HFA (Proair HFA) 8.5 Gm Hfa.aer.ad 2 PUFFS INHALATION Q4H PRN PRN For Shortness of Breath (Reported) Docusate Sodium (Docusate Sodium) 250 Mg Capsule 250 MG PO BID PRN PRN For Constipation (Reported) Ondansetron (Ondansetron) 8 Mg Tablet 8 MG PO Q8H PRN PRN For Nausea/Vomiting ( Reported) Oxycodone (Roxicodone) 5 Mg Tablet 10 MG PO Q6H PRN PRN For Pain Prescribed by: TO WATERMAN MD Psyllium Husk (Psyllium Husk) 1,000 Gm Powder 1 TBS PO DAILY PRN PRN For Constipation (Reported) Followup Plan Discharge Diet: No restrictions Discharge Activity: No restrictions Follow-up with PCP in: 2 weeks To Waterman MD December 01, 2016 08:14
[2016-12-01] MEDS: Pantoprazole 20 mg ER24 Tablet PO SCH (09:06)
[2016-12-01] MEDS: Polyethylene Glycol (PEG) 17 Gm Powder PO SCH (09:06)
[2016-12-01] MEDS: Multivit-Miner-Folic Acid-Iron Tablet PO SCH (09:10)
--- NOTE | 2016-12-01 09:16 | DRSVH ---
PROCEDURE: X-RAY CHEST, TWO VIEWS ([id number]) INDICATIONS: follow poss pneumonia on november 29 xray TECHNIQUE: 2 views of the chest were acquired. COMPARISON: [facility], CR, XR CHEST 1VW (PORTABLE), 11/21/2016, 20:37. [facility], CR, CHEST 1VW (PORTABLE), 02/06/2014, 4:52. [facility], CT, CHEST ANGIO-PE, 2012, 15:05. [facility], CR, XR CHEST 2VW, 06/27/2015, 9:43. [facility], CR , XR CHEST 1VW (PORTABLE), 11/29/2016, 17:56. FINDINGS: Surgical changes and devices: Orthopedic screws proximal right humerus stable compared to prior exam ination. Lungs and pleura: No pleural effusions or pneumothorax. Lungs are clear. Lung volumes are increase d with flattening of the hemidiaphragms suggesting COPD. Mediastinum: Mediastinal contours appear normal. Heart size is normal. Bones and chest wall: Chronic third, fourth, fifth and sixth rib fractures stable compared to prior examination. No suspicious bony lesions. Overlying soft tissues appear unremarkable. Diffuse idiop athic skeletal hyperostosis redemonstrated within the thoracic spine. IMPRESSION: Chronic right rib fractures redemonstrated as well as postsurgical changes of the right s houlder. No definite acute cardiopulmonary processes identified. Dictated by: Garrick VILLEGAS Interpreted: Arvind Beard MD on 12/01/2016 at 9:12 Transcribed by: RENEE on 12/01/2016 at 9:15 Approved by: Arvind Beard M.D. on 12/01/2016 at 10:21
[2016-12-01 09:24] VITALS: PULSE 86
[2016-12-01 09:52] VITALS: BP 120/55; PULSE 63; RESP 16; O2SAT 95
--- NOTE | 2016-12-01 10:27 | NUR ---
Social Work-discharge: Data:EMR Reviewed. pt is on day 2 of hospitalization for hypotension per H&P. Pt is medically stable for discharge. Pt has three day stay from last hospitalization for SNF. PT has been working with pt and recommending SNF placement. UR specialist confirmed with [facility] that they are able to accept pt today and Che has arranged w/c transport for 1300. SW updated pt at bedside and he is agreeable to plan. ROSALINO placed a call to daughter Dali and son in law Sebas and left them both messages informing them of discharge. RN,UC,pt/family, ad [facility] all updated and agreeable to plan. Assessment:Pt who would benefit from SNF. Plan:Pt to discharge to [facility] today via cabulance at 1300. ROSALINO has notified pt and left messages for pt's family informing them of discharge. RN,UC,pt/family, ad [facility] all updated and agreeable to plan. BRIONNA Suarez
--- NOTE | 2016-12-01 10:29 | NUR ---
Faxed orders to [facility] and placed copy in the chart. Called and spoke with Che Rogers in admission and she arranged transport for 1300. Updated [employer] ENGINEER and RN.
--- NOTE | 2016-12-01 11:14 | NUR ---
Case Management: [place]. [facility] delivered and charted. Janny Gooden RN
--- NOTE | 2016-12-01 12:35 | NUR ---
Report to [facility] Called and gave report to Lety at [facility]. Answered all question
--- NOTE | 2016-12-01 13:10 | NUR ---
Discharge Transferred to /, after getting patient dressed, with 2 assist. Carry-me transported via cabulance to [facility]. All belongings taken, including phone and punchboard stuffer.
== END 2016-12-01 13:09 | DRG 684 ==
LOC: SED 11:20 → EDBD 11:20 → OBSVTOIN 17:14 → MPC 17:14
PROVIDERS: ADMIT Internal Medicine; ATTEND Internal Medicine
DX: N17.9 Acute kidney failure, unspecified (principal); R40.0 Somnolence; F10.20 Alcohol dependence, uncomplicated; I10 Essential (primary) hypertension; E78.5 Hyperlipidemia, unspecified; F41.8 Other specified anxiety disorders; M16.11 Unilateral primary osteoarthritis, right hip; L53.9 Erythematous condition, unspecified; F12.90 Cannabis use, unspecified, uncomplicated; I25.10 Atherosclerotic heart disease of native coronary artery without angina pectoris; Z95.5 Presence of coronary angioplasty implant and graft; Z99.3 Dependence on wheelchair